=== PATIENT | male | born 1960 | race Caucasian/White ===

== ENCOUNTER 2019-12-21 20:17 | Emergency (ER) | payer BC ==
--- OUTSIDE RECORDS SUMMARY | 2019-12-21 20:20 | XMS REPORT | Continuity of Care Document ---
:1960 Author Organization [employer] Care Team Providers Name Role Phone [employer] Unavailable Un available Problems Problem Status Onset Classification Date Comments Sourc e Date Reported Right upper 06/22/19 01/06/2019 [facility] quadrant 19 [facility] abdominal swelling, mass and lump R03.0 - ELEVATED Active 06/26/19 [facility] BLOOD-PRESSURE 18 Tamiko and READIN R Abdominal mass Resolved Problem 08/18/2019 M edical (finding) Group, [facility] [place] Finding of Active Problem 08/18/2019 Medic al increased blood Grou p, pressure [facility] (finding) [place] Ex-smoker Active Problem 08/18/2019 Medica l (finding) Group, [facility] [place] Hearing aid worn Active Problem 08/18/2019 Medical (finding) Group, [facility] [place] Heartburn Active Problem 08/18/2019 Medica l (finding) Group, [facility] [place] Simple obesity Active Problem 08/18/2019 [facility] edical (disorder) Group, [facility] [place] Dyspnea (finding) Resolved Problem 08/18/2019 [facility], [facility] [place] Personal history 01/06/2019 [facility] of nicotine [place] dependence Diverticulosis of 01/06/2019 [facility] large intestine [place] without perforation or abscess without bleeding Enlarged prostate 01/06/2019 [facility] without lower [place] urinary tract symptoms Medications Medication Details Route Status Patient Ordering Order Source Instructions Provider Date Testosterone 0 Refill(s) Active [facility] 019 [facility] Amlodipine PO, Daily, 0 Active MH Refill(s) 019 Medical Group metoprolol PO, Daily, 0 Active MH extended Refill(s) 019 Medical release Group ezetimibe 10 MG 1 tab, PO, Active MH / Simvastatin Daily, # 90 019 Medica l 20 MG Oral tab, 1 Group Tablet [Vytorin Refill(s) 03/24] pantoprazole 40 = 1 tab, PO, Active MH mg oral enteric Daily, # 90 019 Medi charli coated tablet tab, Group Pharm[place] [id number] benzonatate 200 200 mg = 1 No Longer MH MG Oral Capsule cap, PO, Active 019 Medical [Tessalon] TID, X 10 Group day, # 30 cap, 0 Refill(s), Pharmacy: [facility] [place] azithromycin See No Longer MH 250 mg oral Instructions Active 019 Medical tablet , Take 2 Group tablets by mouth the first day then 1 tablet by mouth daily on days 2-5., X 5 day, # 6 tab, 0 Refill(s), Pharmacy: [facility] [place] predniSONE 20 20 mg = 1 No Longer MH mg oral tablet tab, PO, Active 019 Medical Daily, X 5 Group day, # 5 tab, 0 Refill(s), Pharmacy: [facility] [place] pantoprazole 40 40 mg = 1 No Longer MH mg oral enteric tab, PO, Active 019 Medical coated tablet Daily, # 90 Group tab, 1 Refill(s), Pharmacy: [place] [id number] 0.5 ML 0.5 mL, IM, Active MH Varicella ONCE, repeat 019 Medical zoster virus dose in 2 to Group glycoprotein E, 6 months, # recombinant 0.1 1 mL, 1 MG/ML Injection Refill(s), [Shingrix] Pharmacy: [place] [id number] tadalafil 10 MG 10 mg = 1 Active MH Oral Tablet tab, PO, 018 Medical [Cialis] Daily, PRN Group for erectile dysfunction, # 10 tab, 1 Refill(s) Allergies, Adverse Reactions, Alerts Substance Category Reaction Severity Reaction Status Date Comments S ource type Reported HYDROcodone Assertion Drug Active MH allergy Medical Group Immunizations No Data Provided for This Section Results No Data Provided for This Section Pathology Reports No Data Provided for This Section Diagnostic Reports Report Value Date Source CT Low Dose Lung Radiation Dose CTDIVOL = 0 (mGy): DLP = 154.79 (mGy-cm) 06/14/2019 [facility] Screening PROCEDURE INFORMATION: Exam: CT Lung cancer screening Exam date and time: 06/14/2019 9:50 AM Age: 59 years old 59 years year old. Clinical indication: Personal history of nicotine dependence; Additional info: /z87.891 personal history of nicotine dependence Additional history: Asymptomatic patient meeting high-risk criteria for lung screening. Patient is not currently a smoker. Th ere is a 40 pack-year history of smoking. 1 year follow-up. TECHNIQUE: Imaging protocol: CT volumet tamara low-dose chest CT without contrast. Lung cancer screening. 3D rendering: MIP and/or 3D reconstructed images were created by the technologist. CTDI volume: CTDI 4.08 mGy Total DLP: DLP 154.79 mGy-cm COMPARISON: CT Low Dose Lung Screening 06/18/2018 9:04 AM FINDINGS: Lungs: Small focal area of ground-glass pulmonar y parenchyma opacity is noted at the ventral medial right upper lobe abutting the anterior junction line associated with a larger distribution of peribro nchial thickening and peribronchial ground-glass haziness; a s imilar smaller distribution pattern of peribronchial opacity is noted at the dorsal lat eral left lower lobe. Mild centrilobular emphysema at the upper lung rosas bilaterally. Calcified granulomas are noted at the superior segment of the left lower lobe, lateral and dorsal right upper lobe, ventral lateral rig ht middle lobe, dorso lateral basal right lower lobe and medial basal left low er lobe. Lung nodules: No noncalcified pulmonary nodule. Pleural space: Unremarkable. No pneumothorax. No pleural effusion. Heart: Unremarkable. No cardiomegaly. No pericar dial effusion. Coronary arteries: Moderate coronary artery calc ifications. Mediastinum: Non threshold mediastinal lymph nod es.Air is present within the esophageal lumen with may represent esophageal d ysmotility and/or reflux. Aorta: Ectasia of the mid as cending thoracic aorta measuring 4.2 x 4.3 cm. Mild vascular calcification Lymph nodes: Unremarkable. No enlarged lymph nod es. Bones/joints: Unremarkable. No acute abnormality . Soft tissues: Unremarkable. Other findings: Fatty infilt ration of the pancreatic head and uncinate process. IMPRESSION: 1.Category 2: Negative, will gn findings with no evidence of malignancy. Suggest next LDCT in 12 months if age less than 77 years . 2. Interval demonstration of bronchopneumonia pa ttern at the ventral medial right upper lobe and dorsal lateral left lower l obe. 3. Moderate coronary artery calcifications. 4. Ectasia of the mid ascending thoracic aorta incrementally increased in size from the previous exam. 5. Multiple calcified granulomas are noted at th e lungs bilaterally. 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 There is a 48 pack-year history of smoking. COMPARISON: None. TECHNIQUE: Noncontrast, volumetric low-dose CT C hest. kVp = 120 mA = 120; CT Dlvol = 4.08 mGy DLP [address] imaging performed at this location utilizes radiation dose optimization techniques which include one or more of the following: -Automated exposure control -Adjustment of the mA and/or kV according to pat ient size -Use of iterative reconstruction technique FINDINGS: LUNG NODULES: Multiple calcified granulomas in b oth lungs. Other Lung Disease: Bleb or air cyst left upper lobe. Aorta: Minimal atherosclerosis. The ascending ao rta measures 4 cm AP. Heart: Multivessel coronary artery calcification s. Lymph nodes: No bulky lymph nodes. Base of Neck: No significant finding. Upper Abdomen: Possible cyst in the liver. OTHER INCIDENTALS: Generalized osteopenia. LUNG-RADS CATEGORY AND IMPRESSION: 1. Lung RADS Category 2. Continue annual screeni ng with low-dose CT chest. 2. Coronary artery calcifications. 3. Ectatic ascending aorta. 4. Old healed granulomatous disease. Category C -- History of lung cancer: No Category S -- Other findings requiring urgent ev aluation: None Thank you for choosing the [facility] Lung Screening Program. [id number] Pelvis wo IV contrast CT PELVIS WITHOUT CONTRAST W ITH SAGITTAL AND CORONAL REFORMATTED IMAGES 06/18/2018 [facility] CT HISTORY: Left lower quadrant abdominal mass and pain; evaluate for hernia TECHNIQUE: IV CONTRAST: No. GI CONTRAST: Yes. CT imaging performed at this location utilizes radiation dose optimization techniques which include one or more of the following: -Automated exposure control -Adjustment of the mA and/or kV according to pat ient size -Use of iterative reconstruction technique CT Radiation Dose DLP 629.06 mGy-cm COMPARISON: None available. FINDINGS: There is no inguinal, femora l, or pelvic wall hernia. No soft tissue mass or fluid collection is seen within the pelvis. No inguinal lymphadenopathy. Normal pelvic musculature. Visualized portion of the co jose demonstrates mild diverticulosis without evidence of acute diverticulitis. The appendix is normal. The visualized small bowel is normal. Normal urinary bladder. Mild pros tatomegaly with coarse prost ate calcifications. No free fluid or lymphadenopathy in the pelvis. No aggressive osseous lesion or acute osseous abnormality. Mild degenerative spurring of the bilateral hip joints. IMPRESSION: 1. No mass, hernia, or acute abnormality. 2. Mild colonic diverticulos is, mild prostatomegaly, mild degenerative spurring of the hips. SL: [id number] Chest 2 views DX Study: Chest 2 views DX 06/27/2017 EVANGELISTA Gee Clinical Indication: - wheezing at night Comparison: None FINDINGS: The cardiac silhou ette is normal in size. The lungs are clear and without consolidation or congestion. Scattered calcified granulomas throughout the bilateral lungs are present. No pleural eff usion or pneumothorax is seen. The osseous stru ctures are unremarkable. IMPRESSION: No acute cardiopulmonary disease. SL: [id number] Consultation Notes No Data Provided for This Section Discharge Summaries No Data Provided for This Section History and Physicals No Data Provided for This Section Vital Signs Vital Sign Value Date Comments Source BMI Calculated 31.78 01/04/2019 Medical Gr oup Weight 100.455 01/04/2019 Medical Grou p Height 177.8 cm 01/04/2019 Medical Gr[facility] p Temperature Oral (F) 97.9 F 01/04/2019 [facility]i [facility] Heart Rate 56 01/04/2019 Medical Grou p Respitory Rate 18 01/04/2019 Medical Gr oup Systolic (mm Hg) 145 01/04/2019 Medical Group Diastolic (mm Hg) 80 01/04/2019 Medical Group Heart Rate 62 07/11/2018 Medical Grou p Temperature Oral (F) 98.1 F 07/11/2018 [facility]i [facility] Group Systolic (mm Hg) 125 07/11/2018 Medical Group Diastolic (mm Hg) 84 07/11/2018 Medical Group Height 177.8 cm 07/11/2018 Medical Grou p Weight 104.545 07/11/2018 Medical Grou p BMI Calculated 33.07 07/11/2018 Medical Gr oup BMI Calculated 33.26 06/11/2018 Medical Gr oup Weight 105.142 06/11/2018 [facility] Gr[facility] p Height 177.8 cm 06/11/2018 [facility] Medical Grou p Temperature Oral (F) 97.4 F 06/11/2018 [facility]i [facility]li Group Heart Rate 60 06/11/2018 [facility] p Systolic (mm Hg) 147 06/11/2018 [facility] Diastolic (mm Hg) 96 06/11/2018 Medical Group Heart Rate 70 06/22/2017 [facility] Medical Grou p Temperature Oral (F) 97.9 F 06/22/2017 MH Medi charli Group Systolic (mm Hg) 141 06/22/2017 [facility] Diastolic (mm Hg) 85 06/22/2017 [facility] Height 177.8 cm 06/22/2017 [facility] p BMI Calculated 32.41 06/22/2017 Medical Gr oup Weight 102.443 06/22/2017 [facility] Medical Grou p Encounters Location Location Encounter Encounter Reason Attending ADM PR Stat us Source Details Type Number For Provider Date Date Visit Outpatient [id number] SILVESTRE PIEDRA 06/22 Act [facility] Outpatient [id number] Silvestre Piedra 06/22 06/23 Primary [facility] Outpatient [id number] SILVESTRE PIEDRA 06/11 Act [facility] Outpatient [id number] Silvestre Piedra 06/11 06/12 Primary Medical Care [facility] Outpt Diag [id number] Silvestre Piedra 06/18 06/19 [facility] Outpatient Services [facility] Phone [id number] 06/20 06/22 Primary Message [facility] [id number] SILVESTRE PIEDRA 06/27 Act [facility] Ambulatory [id number] Silvestre Piedra 06/27 06/27 Primary Pre-Reg [facility] Out[facility] [id number] AKUVI ELHOR 07/11 [facility] Outpatient [id number] Akuvi Elhor 07/11 07/12 MH Primary 3 Medical Care Group [facility] Phone [phone] 07/13 07/15 Primary Message Medical Care [facility] Outpatient [id number] Silvestre Piedra 01/04 [facility] Outpatient [id number] Silvestre Piedra 01/04 01/05 [facility] [id number] 01/07 01/08 Primary Visit Medical Care [facility] Between [id number] 05/20 05/21 MH Primary Visit Medical Care Group [facility] Outpt Diag [id number] Ariste[place] 06/14 06/15 [facility] Outpatient Services [facility] Between [id number] 08/06 08/07 Medicine Visit [facility] Between [id number] 08/14 08/15 Medicine Visit [facility] Procedures Procedure Code Date Perfomer Comments Source Hernia [id number] Medical Group, [facility] [place] Skin<sup>1</sup> [id number] REMOVAL FOR [facility] CANCER Group, [facility] Tonsillectomy [id number] [facility] Assessment and Plan No Data Provided for This Section Plan of Care No Data Provided for This Section Social History Social History Date Source Social History TypeResponse 06/22/2017 [facility] Alcohol Current, Type Beer.1 Smoking Status Former smoker; Ready to change: No; Conc erns about tobacco use in household: No; Exposure to Tobacco Smoke None; Cigarette Smoking Last 365 Days No; Reg Smoking Cessation Counseling No entered on: 01/04/19 1one or two a month Social History TypeResponse 06/22/2017 [facility] [place] Alcohol Current, Type Beer.1 Smoking Status Former smoker; Ready to change: No; Conc erns about tobacco use in household: No; Exposure to Tobacco Smoke None; Cigarette Smoking Last 365 Days No; Reg Smoking Cessation Counseling No entered on: 01/04/19 1one or two a month Family History No Data Provided for This Section Advance Directives No Data Provided for This Section Functional Status No Data Provided for This Section
--- NOTE | 2019-12-21 20:39 | ER ---
Nurse's Notes [facility] Name: Mynor Jenkins Age: 59 yrs Sex: Male : 1960 Arrival Date: 12/21/2019 Time: 20:21 Bed Waiting Private MD: Diagnosis: Presentation: 12/20 20:34 Chief complaint: Patient states: BP 203/102 today. Slight back pain. Denies PATINO/CP. ll1 Coronavirus screen: Patient denies a cough. Patient denies shortness of breath or difficulty breathing. Patient denies measured and/or subjective temperature greater than 100.4F prior to today's visit. Patient denies travel on a cruise ship or to a country [facility] currently lists as an affected area. Patient denies contact with known and/or suspected case of COVID-19. Proceed with normal triage. Ebola Screen: Patient denies travel to an Ebola-affected area in the 21 days before illness onset. Initial Sepsis Screen: Does the patient meet any 2 criteria? HR > 90 bpm. No. Patient's initial sepsis screen is negative. Risk Assessment: Do you want to hurt yourself or someone else? Patient reports no desire to harm self or others. Onset of symptoms was December 21, 2019. 20:34 Method Of Arrival: Ambulatory ll1 20:34 Acuity: JAYJAY 3 ll1 Historical: - Allergies: 20:36 Hydrocodone-Acetaminophen; ll1 - PMHx: 20:36 Hypertension; High Cholesterol; Emphysema; ll1 - PSHx: 20:36 Hernia repair; Tonsillectomy; ll1 - Immunization history:: Flu vaccine is up to date. - Social history:: Smoking status: Patient/guardian denies using tobacco, the patient reports quitting approximately 21 years ago, Patient uses alcohol, only on a social basis. Patient/guardian denies using street drugs, IV drugs. Vital Signs: 20:34 BP 144 / 88; Pulse 93; Resp 18; Temp 99.0; Pulse Ox 99% ; Pain 0/10; ll1 20:48 BP 142 / 86; ll1 ED Course: 20:21 Patient arrived in ED. cf2 20:35 Triage completed. ll1 20:37 Arm band placed on Patient notified of wait time. ll1 20:39 States since his BP is normal now, he is going to go home. Will return if needed. . ll1 Administered Medications: No medications were administered Outcome: 20:39 Patient left the ED. ll1 20:49 Patient left the ED. 1 Signatures: Carol Spicer2 Kitty Johnson, RN RN ll1
[2019-12-21 22:33] VITALS: TEMP 99; O2SAT 99
[2019-12-21 22:36] VITALS: BP 142/86
== END 2019-12-21 20:49 | disposition left against medical advice (07) ==
LOC: ER 20:17
DX: Z53.21 Procedure and treatment not carried out due to patient leaving prior to being seen by health care provider (principal)
CPT/HCPCS: 99281

== ENCOUNTER 2020-01-28 08:30 | Emergency (ER) | payer BC ==
--- OUTSIDE RECORDS SUMMARY | 2020-01-28 09:12 | XMS REPORT | Clinical Summary ---
:1960 Author Organization [employer] Address [address] [place] [id number] Care Team Providers Name Role Phone Destinee Avery MD Primary Care Provider Allergies Not on File Medications Not on file Active Problems Not on file Encounters Date Type Specialty Care Team Description 01/22/2020 Travel 01/20/2020 Telemedicine Cardiology Mack Shen Other hyperl ipidemia (Primary Dx); MD Rickie Abnormal labora tory test; Essential hyper tension; Abnormal glucos e; Diabetes mellit us screening; Thoracic aortic aneurysm without rupture (HCC) 01/16/2020 Travel after 01/27/2019 Social History Tobacco Use Types Packs/Day Years Used Date Never Assessed Sex Assigned at Date Recorded Not on file Job Start Date Occupation Industry Not on file Not on file Not on file Travel History Travel Start Travel End No recent travel history available. COVID-19 Exposure Response Date Recorded In the last month, have you been in contact with No / Unsure 01/22/2020 2:57 PM CDT someone who was confirmed or suspected to have Coronavirus / COVID-19? Last Filed Vital Signs Not on file Plan of Treatment Date Type Specialty Care Team Description 02/03/2020 Appointment Procedural Cardiology Mack Shen MD [address] [place], [place] [address] [phone] 02/03/2020 Appointment Procedural Cardiology Mack Shen MD [address] [place], [place] [address] [phone] Health Maintenance Due Date Last Done Comments COLONOSCOPY SCREENING 2008 SHINGLES VACCINES (#1) 2008 INFLUENZA VACCINE 03/05/2020 Results Not on fileafter 01/27/2019 ([place]) [place] [address] Advance Directives For more information, please contact: [phone] Type Date 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
--- OUTSIDE RECORDS SUMMARY | 2020-01-28 09:13 | XMS REPORT | Continuity of Care Document ---
:1960 Author Organization [facility] t Address [address] [place] [address] Care Team Providers Name Role Phone Destinee Avery MD Primary Care Physician Rickie Shen MD Attending Clinician Rich Lama Attending Clinician Destinee Avery Attending Clinician Jase Wang Attending Clinician Payers Payer Name Policy Type Policy Number Effective Date Expiration Date S saurabh [id number] xxxxxxxxxxxx 2011 [place] CHOICE 00:00:00 Sabianist PPO/FEDERAL EMPL PPOxxxxxxxxxxx [id number] sentPPO Problems Condition Condition Condition Status Onset Resolution Last Treating Co mments Source Name Details Category Date Date Treatment Clinician Date R03.0 - Diagnosis Active 2017-06-27 Me moria ELEVATED -22 15:38:00 l BLOOD-PRES R03.0 - 00:01: [facility] SURE ELEVATED 00 READIN R BLOOD-PRES SURE READIN R Active 06/26/2017 MH [facility] [place] Personal Problem 2019-01-06 Mem oria history of 11:15:31 l nicotine Personal Herm ashlie dependence history of nicotine dependence 01/06/2019 MH [facility] [place] Diverticul Problem 2019-01-06 M emoria osis of 11:15:31 l large [place] intestine Diverticul without osis of perforatio large n or intestine abscess without without perforatio bleeding n or abscess without bleeding 01/06/2019 [facility] [place] Enlarged Problem 2019-01-06 Mem oria prostate 11:15:31 l without Enlarged Iesha nn lower prostate urinary without tract lower symptoms urinary tract symptoms 01/06/2019 EVANGELISTA Gee Abdominal Problem Resolve 2019-08-18 M emoria mass d 21:23:50 l (finding) Jose E Abdominal mass (finding) Resolved Problem 08/18/2019 Medical [facility], EVANGELISTA [place] Dyspnea Problem Resolve 2019-08-18 Mem oria (finding) d 21:23:50 l Dyspnea [place] (finding) Resolved Problem 08/18/2019 [facility] [place] Finding of Problem Active 2019-08-18 M emoria increased 21:23:50 l blood Finding [place] pressure of (finding) increased blood pressure (finding) Active Problem 08/18/2019 Medical [facility], EVANGELISTA [place] Ex-smoker Problem Active 2019-08-18 Me moria (finding) 21:23:50 l Jose E Ex-smoker (finding) Active Problem 08/18/2019 [facility] [place] Hearing Problem Active 2019-08-18 Lai shira aid worn 21:23:50 l (finding) Hearing Herm ashlie aid worn (finding) Active Problem 08/18/2019 [facility] [place] Heartburn Problem Active 2019-08-18 Me moria (finding) 21:23:50 l Jose E Heartburn (finding) Active Problem 08/18/2019 Medical [facility], EVANGELISTA Gee Simple Problem Active 2019-08-18 Memor ia obesity 21:23:50 l (disorder) Simple Herm ashlie obesity (disorder) Active Problem 08/18/2019 Medical [facility] EVANGELISTA Gee Right Problem 2019-0 2019-01-06 2019-01-06 M emoria upper 1-18 11:15:31 11:15:31 l quadrant Right 05:59: [place] abdominal upper 46 swelling, quadrant mass and abdominal lump swelling, mass and lump 06/22/2018 01/06/2019 EVANGELISTA [place] Allergies, Adverse Reactions, Alerts Allergy Allergy Status Severity Reaction(s) Onset Inactive Treating Comm ents Source Name Type Date Date Clinician HYDROcod HYDROcod Active Memori a one one l Jose E Social History Social Habit Start Date Stop Date Quantity Comments Source Sex Assigned At [facility] ethodist Exposure to Not sure [facility] SARS-CoV-2 (event) Social History 2017-06-22 2017-06-22 [facility] ermann 19:34:28 19:34:28 Medications Ordered Filled Start Stop Current Ordering Indication Dosage Frequency Signature Comments Components Source Medication Medication Date Date Medication? Clinician (SIG) Name Name Skyla Yes 0 Memori a e - Refill(s) l 19:52: [place] 00 Amlodipine Yes PO, Daily, M emoria 01-04 0 l 19:52: Refill(s) [place] 00 metoprolol Yes PO, Daily, M emoria extended 01-04 0 l release 19:52: Refill(s) Iesha nn 00 ezetimibe Yes 1 tab, PO, Me moria 10 MG / 8- Daily, # l Simvastatin 19:52: 90 tab, 1 H ermann 20 MG Oral 00 Refill(s) Tablet [Vytorin 10/20] pantoprazol Yes = 1 tab, Me moria e 40 mg 6-26 PO, Daily, l oral 12:34: # 90 tab, [place] enteric 47 Pharmacy: coated [facility] [place] [id number] benzonatate No 200 mg = 1 Memoria 200 MG Oral 2-06 cap, PO, l Capsule 16:07: TID, X 10 Iesha nn [Tessalon] 00 day, # 30 cap, 0 Refill(s), Pharmacy: [place] [address] azithromyci No See Memori a n 250 mg 2-06 Instructio l oral tablet 16:05: ns, Take 2 [place] 00 tablets by mouth the first day then 1 tablet by mouth daily on days 2-5., X 5 day, # 6 tab, 0 Refill(s), Pharmacy: [place] [address] predniSONE No 20 mg = 1 Me moria 20 mg oral 2-06 tab, PO, l tablet 16:04: Daily, X 5 Iesha nn 00 day, # 5 tab, 0 Refill(s), Pharmacy: [place] [address] pantoprazol No 40 mg = 1 M emoria e 40 mg 1-07 tab, PO, l oral 20:56: Daily, # [place] enteric 00 90 tab, 1 coated Refill(s), tablet [facility] 149 0.5 ML 2019-0 Yes 0.5 mL, Memoria Varicella 1-07 IM, ONCE, l zoster 20:56: repeat Jose E virus 00 dose in 2 glycoprotei to 6 n E, months, # recombinant 1 mL, 1 0.1 MG/ML Refill(s), Injection Pharm[facility]: [[facility] tadalafil 2018-0 Yes 10 mg = 1 Mem oria 10 MG Oral 1-18 tab, PO, l Tablet 19:35: Daily, PRN Iesha nn [Cialis] 00 for erectile dysfunctio n, # 10 tab, 1 Refill(s) Vital Signs Vital Name Observation Time Observation Value Comments Source BMI Calculated 2019-01-04 19:28:00 Memori al Jose E Weight 2019-01-04 19:28:00 Memorial Jose E Height 2019-01-04 19:28:00 177.8 cm [facility] Jose E Temperature Oral (F) 2019-01-04 19:28:00 97.9 F [facility] Jose E Heart Rate 2019-01-04 19:28:00 [facility] Jose E Respitory Rate 2019-01-04 19:28:00 Memori al Jose E Systolic (mm Hg) 2019-01-04 19:28:00 Lai rial [place] Diastolic (mm Hg) 2019-01-04 19:28:00 Mem orial Jose E Heart Rate 2018-07-11 15:45:00 Memorial Jose E Temperature Oral (F) 2018-07-11 15:45:00 98.1 F [facility] [place] Systolic (mm Hg) 2018-07-11 15:45:00 Lai rial Jose E Diastolic (mm Hg) 2018-07-11 15:45:00 Mem orial Jose E Height 2018-07-11 15:45:00 177.8 cm Memorial Jose E Weight 2018-07-11 15:45:00 Memorial Jose E BMI Calculated 2018-07-11 15:45:00 Memori al Jose E BMI Calculated 2018-06-11 20:21:00 Memori al [place] Weight 2018-06-11 20:21:00 Memorial Jose E Height 2018-06-11 20:21:00 177.8 cm [facility] Jose E Temperature Oral (F) 2018-06-11 20:21:00 97.4 F [facility] [place] Heart Rate 2018-06-11 20:21:00 Memorial Jose E Systolic (mm Hg) 2018-06-11 20:21:00 Lai rial [place] Diastolic (mm Hg) 2018-06-11 20:21:00 Mem orial [place] Heart Rate 2017-06-22 19:27:00 Memorial Jose E Temperature Oral (F) 2017-06-22 19:27:00 97.9 F [facility] [place] Systolic (mm Hg) 2017-06-22 19:27:00 Lai rial Jose E Diastolic (mm Hg) 2017-06-22 19:27:00 Mem orial Jose E Height 2017-06-22 19:27:00 177.8 cm [facility] Jose E BMI Calculated 2017-06-22 19:27:00 Memori al [place] Weight 2017-06-22 19:27:00 Memorial Jose E Procedures Procedure Date / Time Performed Performing Clinician Sourc e Hernia Memorial Jose E Skin<sup>1</sup> Memorial Lit n Tonsillectomy [facility] [place] Plan of Care Planned Activity Planned Date Details Comments Source Future Scheduled 2020-03-05 INFLUENZA VACCINE [place] [facility] 00:00:00 [code = INFLUENZA VACCINE] Future Scheduled 2008 COLONOSCOPY SCREENING [place] [facility] Test 00:00:00 [code = COLONOSCOPY SCREENING] Future Scheduled 2008 SHINGLES VACCINES [place] [facility] 00:00:00 (#1) [code = SHINGLES VACCINES (#1)] Encounters Start End Encounter Admission Attending Care Care Encounter Source Date/Time Date/Time Type Type Clinicians Facility Department ID 2020-01-20 2020-01-20 [id number] [place] 00:00:00 00:00:[address] 2019-08-15 2019-08-16 Outpatient [facility] [id number] 10:34:57 10:34:57 08 2019-08-07 2019-08-08 Outpatient [facility] [id number] 07:54:05 07:54:05 07 2019-06-14 2019-06-14 Outpatient Rebecait MHOIP MHOIP [id number] 09:02:00 23:59:00 Aristeo 2019-05-20 2019-05-21 Outpatient [facility] [id number] 13:17:22 13:17:22 06 2019-01-07 2019-01-08 Outpatient [facility] [id number] 10:40:28 10:40:28 05 2019-01-04 2019-01-04 Outpatient Avery, MHMG MH[facility] [id number] 14:45:00 23:59:59 Silvestre Antelope 2018-07-13 2018-07-14 Outpatient [facility] [id number] 11:55:00 23:59:59 2018-07-11 2018-07-11 Outpatient Elhor MH[facility] MH[facility] [id number] 10:00:00 23:59:59 Roi Wang [facility] 2018-07-11 2018-07-11 Outpatient Elhor MHMG MHMG [id number] 10:00:00 23:59:59 Vicshahzad [facility] 2018-06-27 2018-06-27 Outpatient Avery, MHMG MHMG [id number] 11:30:00 11:30:00 Silvestre Antelope 2018-06-27 2018-06-27 Outpatient Avery, MHMG MHMG [id number] 11:30:00 11:30:00 Silvestre Antelope 2018-06-20 2018-06-21 Outpatient MHMG MHMG [id number] 15:58:00 23:59:59 2018-06-18 2018-06-18 Outpatient Avery, MHOIP MHOIP [id number] 08:17:00 23:59:00 Silvestre Destinee 2018-06-11 2018-06-11 Outpatient Avery, MHMG MHMG [id number] 14:30:00 23:59:59 Silvestre Destinee 2017-06-22 2017-06-22 Outpatient Avery, MHMG MHMG [id number] 13:45:00 23:59:59 Silvestre Destinee Results This patient has no known results.
--- OUTSIDE RECORDS SUMMARY | 2020-01-28 09:13 | XMS REPORT | Continuity of Care Document ---
:1960 Author Organization [email or web address] Care Team Providers Name Role Phone [email or web address] Unavailable Un available Problems Problem Status Onset Classification Date Comments Sourc e Date Reported Right upper 06/22/19 01/06/2019 [facility] quadrant 19 [place] abdominal swelling, mass and lump R03.0 - ELEVATED Active 06/26/19 [facility] BLOOD-PRESSURE 18 [place] and READIN R Abdominal mass Resolved Problem 08/18/2019 M edical (finding) Group, [facility] [place] Finding of Active Problem 08/18/2019 Medic al increased blood Grou p, pressure OP[facility] (finding) [place] Ex-smoker Active Problem 08/18/2019 Medica l (finding) Group, [facility] [place] Hearing aid worn Active Problem 08/18/2019 Medical (finding) Group, [facility] [place] Heartburn Active Problem 08/18/2019 Medica l (finding) Group, [facility] [place] Simple obesity Active Problem 08/18/2019 [facility] edical (disorder) Group, [facility] [place] Dyspnea (finding) Resolved Problem 08/18/2019 [facility] Medical Group, [facility] [place] Personal history 01/06/2019 OP[facility] of nicotine [place] dependence Diverticulosis of 01/06/2019 [facility] OPID large intestine [place] without perforation or abscess without bleeding Enlarged prostate 01/06/2019 [facility] OP[facility] without lower [place] urinary tract [...] coated tablet tab, Group [place] [address] benzonatate 200 200 mg = 1 No Longer MH MG Oral Capsule cap, PO, Active 019 Medical [Tessalon] TID, X 10 Group day, # 30 cap, 0 Refill(s), [facility] Gillian azithromycin See No Longer MH 250 mg oral Instructions Active 019 Medical tablet , Take 2 Group tablets by mouth the first day then 1 tablet by mouth daily on days 2-5., X 5 day, # 6 tab, 0 Refill(s), [facility] Gillian predniSONE 20 20 mg = 1 No Longer MH mg oral tablet tab, PO, Active 019 Medical Daily, X 5 Group day, # 5 tab, 0 Refill(s), Pharmacy: [facility] Gillian pantoprazole 40 40 mg = 1 No Longer MH mg oral enteric tab, PO, Active 019 Medical coated tablet Daily, # 90 Group tab, 1 Refill(s), [place] [address] 0.5 ML 0.5 mL, IM, Active MH Varicella ONCE, repeat 019 Medical zoster virus dose in 2 to Group glycoprotein E, 6 months, # recombinant 0.1 1 mL, 1 MG/ML Injection Refill(s), [Shingrix] Pharmacy: [place] [address] tadalafil 10 MG 10 mg = 1 [...] (mGy): DLP = 154.79 (mGy-cm) 06/14/2019 [facility] [place] Screening PROCEDURE INFORMATION: Exam: CT Lung cancer [...] Per Beach MD On 06/14/2019 13:58:02; [id number] Low Dose Lung CT Low Dose Lung Screening 06/18/2018 8:24 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 [id number] Pelvis wo IV contrast CT PELVIS WITHOUT CONTRAST W ITH SAGITTAL AND CORONAL REFORMATTED IMAGES 06/18/[address] [facility] [address] HISTORY: Left lower quadrant abdominal mass [...] mild degenerative spurring of the hips. SL: [id number] Chest 2 views DX Study: Chest 2 [...] unremarkable. IMPRESSION: No acute cardiopulmonary disease. SL: [id number] Consultation Notes No Data Provided for This [...] Location Location Encounter Encounter Reason Attending ADM AL Stat us Source Details Type Number For Provider Date Date Visit Outpatient [id number] SILVESTRE PIEDRA 06/22 Act radha [facility] Outpatient [id number] Silvestre Piedra 06/22 06/23 Primary Medical Care Group [facility] Outpatient [id number] SILVESTRE PIEDRA 06/11 Act radha [facility] Outpatient [id number] Silvestre Piedra 06/11 06/12 Primary Medical Care Group [facility] Outpt Diag [id number] Silvestre Piedra 06/18 06/[address] [facility] Phone [id number] 06/20 06/22 Primary Message Medical Care Group [place] Outpatient [id number] SILVESTRE PIEDRA 06/27 Act radha [facility] Ambulatory [id number] Silvestre Piedra 06/27 06/27 Primary Pre-Reg Medical Care Group [place] Outpatient [id number] AKUVI ELHOR 07/11 Act radha [facility] Outpatient [id number] Akuvi Elhor 07/11 07/12 MH Primary 3 Medical Care Group [facility] Phone [id number] 07/13 07/15 Primary Message Medical Care [facility] Outpatient [id number] Silvestre Piedra 01/04 Act radha [facility] Outpatient [id number] Silvestre Piedra 01/04 01/05 [facility] [id number] 01/07 01/08 Primary Visit Medical Care [facility] Between [id number] 05/20 05/21 MH Primary Visit Medical Care Group [facility] Outpt Diag [id number] Aristeo 06/14 06/15 OP[facility] Outpatient Services 2 [facility] [place] [facility] [place] [facility] Between [id number] 08/06 08/07 Medicine Visit [facility] Between [id number] 08/14 08/15 Medicine Visit [facility] Procedures Procedure Code Date Perfomer Comments Source Hernia [id number] Medical Group, [facility] [place] Skin<sup>1</sup> [id number] REMOVAL FOR [facility] CANCER Group, [facility] [place] Tonsillectomy [id number] [facility] [place] Assessment and Plan No Data Provided for [...]
[2020-01-28 09:22] LABS: Absolute Lymphocytes (CBC) 1.2 K/uL (0.7-4.9); Basophils % 0.6 % (0-1.3); Hematocrit 43.5 % (39.6-49.0); Lymphocytes % 23.7 % (15.3-44.8); MPV 7.3 fL (7.6-11.3); Protime INR 1.05; RBC Red Blood Cell Count 5.33 M/uL (4.33-5.43)
--- NOTE | 2020-01-28 09:34 | RAD REPORT ---
EXAM DESCRIPTION: Tod Single View01/28/2020 9:15 am CLINICAL HISTORY: Palpitations COMPARISON: 2012 FINDINGS: Calcified granulomas within the lungs bilaterally The lungs appear clear of acute infiltrate. The heart is normal size IMPRESSION: No acute abnormalities displayed
[2020-01-28 09:43] LABS: ALT/SGPT 47 U/L (12-78); AST/SGOT 23 U/L (15-37); Alkaline Phosphatase 43 U/L (45-117); BUN Blood Urea Nitrogen 18 mg/dL (7-18); Bicarbonate 25 mmol/L (21-32); Bilirubin Direct 0.2 mg/dL (0-0.2); Bilirubin Total 0.7 mg/dL (0.2-1.0); Glucose Level 106 mg/dL (74-106); Magnesium 2.1 mg/dL (1.8-2.4); NT PRO-BNP 69 pg/mL (<125); Potassium 3.8 mmol/L (3.5-5.1); Protein, Total 7.3 g/dL (6.4-8.2); Sodium Level 140 mmol/L (136-145); Troponin (Emerg Dept Use Only) < 0.02 ng/mL (0.0-0.045)
[2020-01-28] MEDS ORDERED: ASPIRIN 81 MG CHEWABLE TABLET ONE ×2 (10:02)
--- NOTE | 2020-01-28 10:19 | ER ---
Nurse's Notes [facility] Name: Mynor Jenkins Age: 59 yrs Sex: Male : 1960 Arrival Date: 01/28/2020 Time: 08:35 Bed 20 Private MD: Diagnosis: Palpitations;Essential (primary) hypertension;Weakness;Ventricular premature depolarization Presentation: 01/27 08:40 Chief complaint: Patient states: episode episodes of "fluttering sensation" in chest x ss 3-4 weeks. Pt reports he was sitting at a red light this morning and felt that sensation and it feels like at times he is about to pass out. Coronavirus screen: Client denies travel out of the [place] in the last 14 days. At this time, the client does not indicate any symptoms associated with coronavirus-19. Ebola Screen: Patient denies exposure to infectious person. Patient denies travel to an Ebola-affected area in the 21 days before illness onset. Initial Sepsis Screen: Does the patient meet any 2 criteria? No. Patient's initial sepsis screen is negative. Does the patient have a suspected source of infection? No. Patient's initial sepsis screen is negative. Risk Assessment: Do you want to hurt yourself or someone else? Patient reports no desire to harm self or others. Onset of symptoms was December 2019. 08:40 Method Of Arrival: Ambulatory ss 08:40 Acuity: JAYJAY 3 ss Historical: - Allergies: 08:46 Hydrocodone-Acetaminophen; ss - PMHx: 08:46 Emphysema; High Cholesterol; Hypertension; ss - PSHx: 08:46 Hernia repair; Tonsillectomy; ss - Immunization history:: Adult Immunizations up to date. - Social history:: Smoking status: Patient denies any tobacco usage or history of. - Family history:: not pertinent. Screenin:00 Abuse screen: Denies threats or abuse. Denies injuries from another. Nutritional sv screening: No deficits noted. Tuberculosis screening: No symptoms or risk factors identified. Fall Risk None identified. Assessment: 09:00 General: Appears in no apparent distress. comfortable, well groomed, well developed, sv Behavior is calm, cooperative, appropriate for age. Pain: Denies pain. Neuro: Level of Consciousness is awake, alert, obeys commands, Oriented to person, place, time, situation, Moves all extremities. Full function Speech is normal. Cardiovascular: Reports intermittent heart palpitations x 4 weeks. 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 Patient's skin is warm and dry. Respiratory: Airway is patent Respiratory effort is even, unlabored, Respiratory pattern is regular, symmetrical. Derm: Skin is pink, warm \\T\\ dry. Musculoskeletal: Range of motion: intact in all extremities. 09:54 Reassessment: Echo at the bedside. sv 10:50 Reassessment: Patient appears in no apparent distress at this time. No changes from sv previously documented assessment. Patient and/or family updated on plan of care and expected duration. Pain level reassessed. Patient is alert, oriented x 3, equal unlabored respirations, skin warm/dry/pink. 11:02 Reassessment: Pt waiting for Echo CD to take to his wood flour miller. sv Vital Signs: 08:40 BP 139 / 91; Pulse 63; Resp 16; Temp 97.8(O); Pulse Ox 100% on R/A; Weight 102.97 kg; ss Height 5 ft. 10 in. (177.80 cm); Pain 0/10; 09:14 BP 141 / 87; Pulse 56 MON; Resp 17; Pulse Ox 96% on R/A; sv 10:14 BP 127 / 83; Pulse 65; Resp 16; Pulse Ox 99% ; sv 08:40 Body Mass Index 32.57 (102.97 kg, 177.80 cm) ss 09:14 Sinus bradycardia sv ED Course: 08:35 Patient arrived in ED. mr 08:45 Triage completed. ss 08:46 Arm band placed on right wrist. ss 08:47 Hosea Jones MD is Attending Physician. micah 08:55 Marzena De La Cruz, NEPTALI is Primary Nurse. sv 08:57 Patient has correct armband on for positive identification. Placed in gown. Bed in low sv position. Call light in reach. Report received from Mellissa GUNDERSON. library monitor on. Pulse ox on. NIBP on. Door closed. Head of bed elevated. 09:00 Inserted saline lock: 20 gauge in left antecubital area, using aseptic technique. Blood sv collected. Flushed left antecubital with 5 ml normal saline. 09:14 XRAY Chest (1 view) Sent. sv 09:15 XRAY Chest (1 view) In Process Unspecified. EDMS 09:15 Awaiting ED provider evaluation. sv 09:21 ED physician to see patient. sv 10:26 Echocardiogram with doppler done by process development technician. tc 10:50 IV discontinued, intact, bleeding controlled, No redness/swelling at site. Pressure sv dressing applied. 11:03 No provider procedures requiring assistance completed. sv Administered Medications: 09:54 Drug: NS 0.9% 1000 ml Route: IV; Rate: 125 ml/hr; Site: left antecubital; sv 10:50 Follow up: Response: No adverse reaction; IV Status: Order to discontinue infusion; IV sv Intake: 125ml 09:54 CANCELLED (Physician Discretion): Aspirin 162 mg PO once sv 09:54 Drug: Aspirin Chewable Tablet 324 mg Route: PO; sv 10:50 Follow up: Response: No adverse reaction sv Intake: 10:50 IV: 125ml; Total: 125ml. sv Outcome: 10:19 Discharge ordered by . micah 10:50 Discharged to home ambulatory. sv 10:50 Condition: stable 10:50 Discharge instructions given to patient, Instructed on discharge instructions, follow up and referral plans. medication usage, Demonstrated understanding of instructions, follow-up care, medications, Prescriptions given X 2. 11:21 Patient left the ED. sv Signatures: Dispatcher [employer] EDMS Marzena De La Cruz, RN Hosea Christopher MD MD cha Rivera, Mary mr Smirch, Shelby, Rubina Thomas RN, lead security officer EKG Ttc
--- NOTE | 2020-01-28 10:19 | EDPHYS ---
Physician Documentation [facility] Name: Mynor Jenkins Age: 59 yrs Sex: Male : 1960 Arrival Date: 01/28/2020 Time: 08:35 Bed 20 Private MD: ED Physician Hosea Jones HPI: 01/27 09:30 This 59 yrs old Male presents to ER via Ambulatory with complaints of micah Dizziness. 09:30 The patient presents with dizziness, generalized weakness. Onset: The symptoms/episode micah began/occurred just prior to arrival. Context: occurred at home, occurred while the patient was walking. Modifying factors: The symptoms are alleviated by nothing, the symptoms are aggravated by nothing. Associated signs and symptoms: Pertinent positives: palpitations. Severity of symptoms: At their worst the symptoms were mild moderate in the emergency department the symptoms have improved mildly. Patient's baseline: Neuro: alert and fully oriented. The patient has not experienced similar symptoms in the past. Historical: - Allergies: 08:46 Hydrocodone-Acetaminophen; ss - PMHx: 08:46 Emphysema; High Cholesterol; Hypertension; ss - PSHx: 08:46 Hernia repair; Tonsillectomy; ss - Immunization history:: Adult Immunizations up to date. - Social history:: Smoking status: Patient denies any tobacco usage or history of. - Family history:: not pertinent. ROS: 09:30 Constitutional: Negative for fever, chills, and weight loss, Eyes: Negative for injury, micah pain, redness, and discharge, ENT: Negative for injury, pain, and discharge, Neck: Negative for injury, pain, and swelling, Respiratory: Negative for shortness of breath, cough, wheezing, and pleuritic chest pain, Abdomen/GI: Negative for abdominal pain, nausea, vomiting, diarrhea, and constipation, Back: Negative for injury and pain, : Negative for injury, bleeding, discharge, and swelling, MS/Extremity: Negative for injury and deformity, Skin: Negative for injury, rash, and discoloration, Psych: Negative for depression, anxiety, suicide ideation, homicidal ideation, and hallucinations, Allergy/Immunology: Negative for hives, rash, and allergies, Endocrine: Negative for neck swelling, polydipsia, polyuria, polyphagia, and marked weight changes, Hematologic/Lymphatic: Negative for swollen nodes, abnormal bleeding, and unusual bruising. 09:30 Cardiovascular: Positive for palpitations. 09:30 Neuro: Positive for dizziness, near syncope, weakness. Exam: 09:30 Constitutional: This is a well developed, well nourished patient who is awake, alert, micah and in no acute distress. Head/Face: Normocephalic, atraumatic. Eyes: Pupils equal round and reactive to light, extra-ocular motions intact. Lids and lashes normal. Conjunctiva and sclera are non-icteric and not injected. Cornea within normal limits. Periorbital areas with no swelling, redness, or edema. ENT: Nares patent. No nasal discharge, no septal abnormalities noted. Tympanic membranes are normal and external auditory canals are clear. Oropharynx with no redness, swelling, or masses, exudates, or evidence of obstruction, uvula midline. Mucous membranes moist. Neck: Trachea midline, no thyromegaly or masses palpated, and no cervical lymphadenopathy. Supple, full range of motion without nuchal rigidity, or vertebral point tenderness. No Meningismus. Chest/axilla: Normal chest wall appearance and motion. Nontender with no deformity. No lesions are appreciated. Cardiovascular: Regular rate and rhythm with a normal S1 and S2. No gallops, murmurs, or rubs. Normal PMI, no JVD. No pulse deficits. Respiratory: Lungs have equal breath sounds bilaterally, clear to auscultation and percussion. No rales, rhonchi or wheezes noted. No increased work of breathing, no retractions or nasal flaring. Abdomen/GI: Soft, non-tender, with normal bowel sounds. No distension or tympany. No guarding or rebound. No evidence of tenderness throughout. Back: No spinal tenderness. No costovertebral tenderness. Full range of motion. Male : Normal genitalia with no discharge or lesions. Skin: Warm, dry with normal turgor. Normal color with no rashes, no lesions, and no evidence of cellulitis. MS/ Extremity: Pulses equal, no cyanosis. Neurovascular intact. Full, normal range of motion. Neuro: Awake and alert, GCS 15, oriented to person, place, time, and situation. Cranial nerves II-XII grossly intact. Motor strength 5/5 in all extremities. Sensory grossly intact. Cerebellar exam normal. Normal gait. Psych: Awake, alert, with orientation to person, place and time. Behavior, mood, and affect are within normal limits. Vital Signs: 08:40 BP 139 / 91; Pulse 63; Resp 16; Temp 97.8(O); Pulse Ox 100% on R/A; Weight 102.97 kg; ss Height 5 ft. 10 in. (177.80 cm); Pain 0/10; 09:14 BP 141 / 87; Pulse 56 MON; Resp 17; Pulse Ox 96% on R/A; sv 10:14 BP 127 / 83; Pulse 65; Resp 16; Pulse Ox 99% ; sv 08:40 Body Mass Index 32.57 (102.97 kg, 177.80 cm) ss 09:14 Sinus bradycardia sv MDM: 08:47 Patient medically screened. micah 09:32 Differential diagnosis: cardiac arrhythmia, generalized weakness, GI bleed, micah hypovolemia, idiopathic dizziness, near-syncope, syncope. Data reviewed: vital signs, nurses notes, lab test result(s), EKG, radiologic studies. Data interpreted: lunchroom monitor: rate is 56 beats/min, rhythm is normal sinus rhythm, Pulse oximetry: on room air is 96 %. Test interpretation: by ED physician or midlevel provider: ECG, plain radiologic studies. Counseling: I had a detailed discussion with the patient and/or guardian regarding: the historical points, exam findings, and any diagnostic results supporting the discharge/admit diagnosis, lab results, radiology results, the need for outpatient follow up. 10:05 Physician consultation: dr jer colón want to double norvasc 5 mg bid, cont split micah dose of metoprolol, will call him today and plan on follow up in office if possible today. 10:08 ED course: all labs explained, and follow up discussed. micah 10:19 Awaiting: echo was normal, valves, wall motion normal.. micah 01/27 08:57 Order name: CBC with Diff; Complete Time: 09:47 micah 01/27 08:58 Order name: Basic Metabolic Panel; Complete Time: 09:47 sv 01/27 08:58 Order name: LFT's; Complete Time: 09:47 sv 01/27 08:58 Order name: Magnesium; Complete Time: 09:47 sv 01/27 08:58 Order name: NT PRO-BNP; Complete Time: 09:47 sv 01/27 08:58 Order name: PT-INR; Complete Time: 09:47 sv 01/27 08:58 Order name: Troponin (emerg Dept Use Only); Complete Time: 09:47 01/27 08:57 Order name: EKG; Complete Time: 08:58 [facility] 01/27 08:57 Order name: Cardiac monitoring; Complete Time: 08:59 [facility] 01/27 08:57 Order name: EKG - Nurse/Tech; Complete Time: 08:59 [facility] 01/27 08:57 Order name: IV Saline Lock; Complete Time: 09:07 [facility] 01/27 08:57 Order name: Labs collected and sent; Complete Time: 09:07 [facility] 01/27 08:57 Order name: O2 Per Protocol; Complete Time: 08:59 [facility] 01/27 08:57 Order name: O2 Sat Monitoring; Complete Time: 08:59 [facility] 01/27 08:58 Order name: XRAY Chest (1 view); Complete Time: 09:47 sv 01/27 09:49 Order name: Echo w/ Doppler bd Administered Medications: 09:54 Drug: NS 0.9% 1000 ml Route: IV; Rate: 125 ml/hr; Site: left antecubital; sv 10:50 Follow up: Response: No adverse reaction; IV Status: Order to discontinue infusion; IV sv Intake: 125ml 09:54 CANCELLED (Physician Discretion): Aspirin 162 mg PO once sv 09:54 Drug: Aspirin Chewable Tablet 324 mg Route: PO; sv 10:50 Follow up: Response: No adverse reaction sv Disposition: 01/28/20 10:19 Discharged to Home. Impression: Palpitations, Essential (primary) hypertension, Weakness, Ventricular premature depolarization. - Condition is Stable. - Discharge Instructions: Hypertension, Near-Syncope, Palpitations, Weakness, Near-Syncope, Dijc-wc-Duqa, Hypertension, Fpsf-lq-Dbpj, Weakness, Hsbm-pi-Tpje, Aspirin and Your Heart, Palpitations, Qstw-if-Fcnb. - Prescriptions for Lopressor 50 mg Oral tablet - take 0.5 tablet by ORAL route every 12 hours with a meal; 20 tablet. Norvasc 5 mg Oral Tablet - take 1 tablet by ORAL route every 12 hours; 40 tablet. - Medication Reconciliation Form, Thank You Letter, Antibiotic Education, Prescription Opioid Use form. - Follow up: Private Physician; When: 2 - 3 days; Reason: Recheck today's complaints, Continuance of care, Re-evaluation by your physician. - Problem is new. - Symptoms have improved. Signatures: Dispatcher [employer] EDME Marzena De La Cruz, RN RN Hoesa Ibrahim MD MD cha Smirch, Shelby, RN RN ss Corrections: (The following items were deleted from the chart) 08:58 08:58 Cardiac monitoring ordered. sv sv 08:58 08:58 EKG - Nurse/Tech ordered. sv sv 08:59 08:58 IV Saline Lock ordered. sv sv 08:59 08:58 Labs collected and sent ordered. sv sv 08:59 08:58 Oxygen Per Protocol ordered. sv sv 08:59 08:58 O2 Sat Monitoring ordered. sv sv 09:01 08:58 Chest Single View+RAD.RAD.BRZ ordered. [facility] EDMS 09:54 09:48 Aspirin 162 mg PO once ordered. [facility] sv 09:54 09:54 Aspirin 162 mg PO once ordered. sv sv 10:28 09:49 EC Echo Doppler W/Color Flow+ECHO.RAD.BRZ ordered. [facility] EDMS 11:21 10:19 01/28/2020 10:19 Discharged to Home. Impression: Palpitations; Essential sv (primary) hypertension; Weakness; Ventricular premature depolarization. Condition is Stable. Discharge Instructions: Hypertension, Near-Syncope, Palpitations, Weakness, Near-Syncope, Oqlm-va-Wcwp, Hypertension, Kcqs-bo-Pkve, Weakness, Bogv-ti-Dskt, Aspirin and Your Heart, Palpitations, Wxrt-nd-Nhqe. Prescriptions for Lopressor 50 mg Oral tablet - take 0.5 tablet by ORAL route every 12 hours with a meal; 20 tablet, Norvasc 5 mg Oral Tablet - take 1 tablet by ORAL route every 12 hours; 40 tablet. and Forms are Medication Reconciliation Form, Thank You Letter, Antibiotic Education, Prescription Opioid Use. Follow up: Private Physician; When: 2 - 3 days; Reason: Recheck today's complaints, Continuance of care, Re-evaluation by your physician. Problem is new. Symptoms have improved. miach
--- NOTE | 2020-01-28 10:43 | EKG ---
Test Date: 2020-01-28 Test Time: 08:53:48 Dictaphone Operator: MARCO ANTONIO MEASUREMENT RESULTS: Intervals: Rate: 56 NH: 188 QRSD: 114 QT: 424 QTc: 409 [place]: P: 37 NH: 188 QRS: -2 T: 28 INTERPRETIVE STATEMENTS: Sinus bradycardia with occasional premature ventricular complexes Otherwise normal ECG Compared to ECG 05/12/2004 07:20:00 Ventricular premature complex(es) now present Electronically Signed On 01-28-20 10:43:13 CDT by Keaton Tinajero
--- NOTE | 2020-01-28 12:08 | ECHO ---
HEIGHT: ft in WEIGHT: lb oz DATE OF STUDY: 01/28/[address]: Hosea Jones MD 2-DIMENSIONAL: YES M.MODE: YES DOPPLER: YES COLOR FLOW: YES TDS: NO PORTABLE: YES DEFINITY: NO BUBBLE STUDY: NO DIAGNOSIS: PALPITATIONS CARDIAC HISTORY: CATHERIZATION: NO SURGERY: NO PROSTHETIC VALVE: NO PACEMAKER: NO MEASUREMENTS (cm) DIASTOLIC (NORMALS) SYSTOLIC (NORMALS) IVSd 1.1 (0.6-1.2) LA Diam 3.0 (1.9-4.0) LVEF 61% LVIDd 5.5 (3.5-5.7) LVIDs 3.7 (2.0-3.5) %FS 33% LVPWd 1.3 (0.6-1.2) Ao Diam 2.9 (2.0-3.7) 2 DIMENSIONAL ASSESSMENT: RIGHT ATRIUM: NORMAL LEFT ATRIUM: NORMAL RIGHT VENTRICLE: NORMAL LEFT VENTRICLE: NORMAL TRICUSPID VALVE: NORMAL MITRAL VALVE: NORMAL PULMONIC VALVE: NORMAL AORTIC VALVE: NORMAL PERICARDIAL EFFUSION: NONE AORTIC ROOT: NORMAL LEFT VENTRICULAR WALL MOTION: NORMAL DOPPLER/COLOR FLOW: NORMAL COMMENTS: NORMAL 2D ECHOCARDIOGRAM WITH DOPPLER. NO WALL MOTION ABNORMALITY. NO EFFUSION. TECHNOLOGIST: Val ROMAN
[2020-02-01 11:47] VITALS: TEMP 97.8
[2020-02-01 11:50] VITALS: BP 127/83; O2SAT 99
== END 2020-01-28 11:21 | disposition home or self-care (01) ==
LOC: ER 08:30
DX: I49.3 Ventricular premature depolarization (principal); R00.2 Palpitations; I10 Essential (primary) hypertension; R53.1 Weakness; Z88.6 Allergy status to analgesic agent
CPT/HCPCS: 36415; 71045; 80048; 80076; 83735; 83880; 84484; 85025; 85610; 93005; 93306; 96360; 99284

== ENCOUNTER 2021-08-19 08:32 | Emergency (ER) | payer BC ==
--- OUTSIDE RECORDS SUMMARY | 2021-08-19 08:34 | XMS REPORT | Continuity of Care Document ---
:1960 Author Organization [facility] t Address [facility] [place] [address] Care Team Providers Name Role Phone MELODY NARAYAN Attending Clinician Unavailable Goldfarb_R Attending Clinician Unavailable Evette Attending Clinician [phone] LEI Attending Clinician Unavailable ANNY HART Attending Clinician Unavailable Goldfarb_R Admitting Clinician Unavailable Payers Payer Name Policy Type Policy Number Effective Date Expiration Date S sa[place] [id number] 2011 00:00:00 Problems This patient has no known problems. Allergies, Adverse Reactions, Alerts This patient has no known allergies or adverse reactions. Medications This patient has no known medications. Procedures This patient has no known procedures. Encounters Start End Encounter Admission Attending Care Care Encounter Source Date/Time Date/Time Type Type Clinicians Facility Department ID 2020-10-30 Outpatient [id number] 08:03:28 [place] 2021-01-25 2021-01-25 Outpatient Goldfarb_R [facility] [id number] 12:31:00 12:31:00 [id number] 2021-01-13 2021-01-13 Outpatient Goldfarb_R [facility] [id number] 10:41:00 10:41:00 [id number] [facility] 2021-01-13 2021-01-13 Outpatient Evette, [facility] [id number] 00:00:00 00:00:00 Myles [id number] 2021-01-07 2021-01-07 Outpatient Goldfarb_R [facility] [address] 11:26:00 11:26:00 [id number] [facility] 2020-11-24 2020-11-24 Outpatient HELENE, [id number] 10:50:00 14:10:00 HORTENSIA 2020-09-29 2020-09-29 Outpatient Goldfarb_R [facility] [address] 12:12:00 12:12:00 [id number] [facility] 2020-09-29 2020-09-29 Outpatient Goldfarb_R [facility] [address] 12:12:00 12:12:00 [id number] [facility] 2020-08-26 2020-08-26 Outpatient MAHMARIAN, [facility] [id number] [place] 00:00:00 00:00:00 FILEMON [address] 2020-07-01 2020-07-01 Outpatient ELOYIAN, [facility] [id number] [place] 00:00:00 00:00:00 FILEMON [address] 2020-06-17 2020-06-17 Outpatient ELOYIAN, [facility] [id number] [place] 00:00:00 00:00:00 FILEMON [address] 2020-06-14 2020-06-14 Emergency E MOHAMED, [id number] 10:03:00 15:40:00 ABDIWAHAB 2020-03-02 2020-03-02 Outpatient ELOYIAN, [facility] [id number] [place] 00:00:00 00:00:00 FILEMON [address] 2020-01-28 2020-01-28 Outpatient ELOYIAN, [facility] [id number] [place] 00:00:00 00:00:00 FILEMON [address] 2020-01-28 2020-01-28 Outpatient SILASMARIAN, [facility] [id number] [place] 00:00:00 00:00:00 FILEMON [address] 2020-01-28 2020-01-28 Outpatient ELOYIAN, [facility] [id number] [place] 00:00:00 00:00:00 FILEMON [address] 2020-01-20 2020-01-20 Outpatient MAHMARIAN, [facility] [id number] [place] 00:00:00 00:00:00 FILEMON [facility] Results This patient has no known results.
[2021-08-19] MEDS ORDERED: ASPIRIN 81 MG CHEWABLE TABLET ONE (09:01)
[2021-08-19 09:05] LABS: Absolute Lymphocytes (CBC) 1.7 K/uL (0.7-4.9); Hematocrit 43.8 % (39.6-49.0); Lymphocytes % 30.1 % (15.3-44.8); MPV 7.1 fL (7.6-11.3); RBC Red Blood Cell Count 5.07 M/uL (4.33-5.43)
[2021-08-19 09:24] LABS: Albumin 4.2 g/dL (3.4-5.0); Bilirubin Direct 0.2 mg/dL (0-0.2); Bilirubin Total 0.5 mg/dL (0.2-1.0); Potassium 3.9 mmol/L (3.5-5.1); Protein, Total 7.5 g/dL (6.4-8.2); Troponin High Sensitivity 7.6 pg/mL (<58.9)
--- NOTE | 2021-08-19 10:29 | RAD REPORT ---
EXAM DESCRIPTION: Tod Single View08/19/2021 9:59 am CLINICAL HISTORY: Chest pain COMPARISON: 2019 FINDINGS: Bilateral calcified lung granulomas. The lungs appear clear of acute infiltrate. The heart is normal size IMPRESSION: No acute abnormalities displayed
--- NOTE | 2021-08-19 12:49 | EDPHYS ---
Physician Documentation [facility] Name: Mynor Jenkins Age: 61 yrs Sex: Male : 1960 Arrival Date: 08/19/2021 Time: 08:34 Bed 14 Private MD: ED Physician Yusuf Rock HPI: 08/19 08:48 This 61 yrs old Male presents to ER via Ambulatory with complaints of Chest Tightness. ms3 09:00 The patient or guardian reports chest pain that is located primarily in the substernal ms3 area. Onset: this morning. The pain does not radiate. Associated signs and symptoms: Pertinent positives: nausea, Pertinent negatives: shortness of breath, vomiting. The chest pain is described as "uncomfortable". 09:12 Modifying factors: The symptoms are alleviated by nothing. the symptoms are aggravated ms3 by nothing. Severity of pain: At its worst the pain was mild in the emergency department the pain is unchanged. 61-year-old male with past medical history of hyperlipidemia, hypertension, emphysema presents for chest tightness began at 7:15 AM. Patient states the pain is in "uncomfortable" feeling across his chest that he rates a 1/10. Patient denies alleviating or inciting factors. Patient states he does have nausea. Patient denies shortness of breath, or diaphoresis.. Historical: - Allergies: 08:47 Hydrocodone-Acetaminophen; jg9 - PMHx: 08:47 Emphysema; High Cholesterol; Hypertension; jg9 - PSHx: 08:47 Tonsillectomy; hernia repair; jg9 - Immunization history:: Client reports receiving the 2nd dose of the Covid vaccine, Pneumococcal vaccine is up to date, Flu vaccine is up to date. - Social history:: Smoking status: Patient denies any tobacco usage or history of. ROS: 09:12 Constitutional: Negative for fever, and chills. Eyes: Negative for injury, pain, ms3 redness, and discharge, ENT: Negative for injury, pain, and discharge, Neck: Negative for injury, pain, and swelling, Respiratory: Negative for shortness of breath, cough, wheezing, and pleuritic chest pain, Abdomen/GI: Negative for abdominal pain, nausea, vomiting, diarrhea, and constipation, Back: Negative for injury and pain, : Negative for injury, bleeding, discharge, and swelling, MS/Extremity: Negative for injury and deformity, Skin: Negative for injury, rash, and discoloration, Neuro: Negative for headache, weakness, numbness, tingling. 09:12 Cardiovascular: Positive for chest pain. 09:12 All other systems are negative. Exam: 08:45 ECG was reviewed by the Attending Physician. ms3 09:12 Constitutional: This is a well developed, well nourished patient who is awake, alert, ms3 and in no acute distress. Head/Face: Normocephalic, atraumatic. Neck: Trachea midline, no cervical lymphadenopathy. Supple, full range of motion without nuchal rigidity, or vertebral point tenderness. No Meningismus. Chest/axilla: Normal chest wall appearance and motion. Nontender with no deformity. Cardiovascular: Regular rate and rhythm with a normal S1 and S2. No gallops, murmurs, or rubs. Normal PMI, no JVD. No pulse deficits. Respiratory: Lungs have equal breath sounds bilaterally, clear to auscultation and percussion. No rales, rhonchi or wheezes noted. No increased work of breathing, no retractions or nasal flaring. Abdomen/GI: Soft, non-tender, with normal bowel sounds. No distension or tympany. No guarding or rebound. No evidence of tenderness throughout. Back: No spinal tenderness. No costovertebral tenderness. Full range of motion. Skin: Warm, dry with normal turgor. Normal color with no rashes, no lesions, and no evidence of cellulitis. MS/ Extremity: Pulses equal, no cyanosis. Neurovascular intact. Full, normal range of motion. Vital Signs: 08:45 BP 141 / 76; Pulse 54; Resp 18 S; Temp 98.0(O); Pulse Ox 99% on R/A; Weight 102.06 kg jg9 (R); Height 5 ft. 10 in. (177.80 cm); Pain 06/14; 08:45 BP 143 / 88; Pulse 54; Resp 17; Pulse Ox 100% on R/A; jg9 09:30 BP 117 / 82; Pulse 52; Resp 16 S; Pulse Ox 94% on R/A; jg9 10:30 BP 133 / 86; Pulse 49; Resp 17 S; Pulse Ox 97% ; jg9 11:30 BP 132 / 88; Pulse 63; Resp 17; Pulse Ox 96% on R/A; jg9 12:00 BP 130 / 85; Pulse 59; Resp 17 S; Pulse Ox 96% on R/A; jg9 08:45 Body Mass Index 32.28 (102.06 kg, 177.80 cm) jg9 MDM: 08:46 Patient medically screened. ms3 08/19 08:49 Order name: Basic Metabolic Panel; Complete Time: 09:35 ms3 08/19 08:49 Order name: CBC with Diff; Complete Time: 09:35 ms3 08/19 08:49 Order name: LFT's; Complete Time: 09:35 ms3 08/19 08:49 Order name: Troponin HS; Complete Time: 09:35 ms3 08/19 08:49 Order name: XRAY Chest (1 view); Complete Time: 10:38 ms3 08/19 09:37 Order name: Troponin High Sensitivity: Draw at 1155; Complete Time: 12:37 ms3 08/19 08:49 Order name: EKG; Complete Time: 08:50 ms3 08/19 08:49 Order name: Cardiac monitoring; Complete Time: 08:56 ms3 08/19 08:49 Order name: EKG - Nurse/Tech; Complete Time: 08:56 ms3 08/19 08:49 Order name: IV Saline Lock; Complete Time: 08:56 ms3 08/19 08:49 Order name: Labs collected and sent; Complete Time: 08:56 ms3 08/19 08:49 Order name: O2 Sat Monitoring; Complete Time: 08:56 ms3 EC:45 Rate is 60 beats/min. Rhythm is regular. QRS [place] is Normal. Clinical impression: ms3 Normal ECG. Interpreted by me. Administered Medications: 09:03 Not Given (Patient took full dose of aspirin (325mg) this morning): Aspirin Chewable jg9 Tablet 324 mg PO once; 81 mg tablets x 4 Disposition Summary: 08/19/21 12:48 Discharge Ordered Location: Home ms3 Condition: Stable ms3 Diagnosis - Chest pain, unspecified ms3 - Dizziness ms3 Followup: ms3 - With: Private Physician - When: 1 - 2 days - Reason: Re-evaluation by your physician Discharge Instructions: - Discharge Summary Sheet ms3 - Nonspecific Chest Pain, Adult ms3 Forms: - Medication Reconciliation Form ms3 - Thank You Letter ms3 - Antibiotic Education ms3 - Prescription Opioid Use ms3 Signatures: Dispatcher [employer] EDYusuf Garner DO DO ms3 Estefani Meraz, RN RN jg9
--- NOTE | 2021-08-19 12:49 | ER ---
Nurse's Notes [facility] Name: Mynor Jenkins Age: 61 yrs Sex: Male : 1960 Arrival Date: 08/19/2021 Time: 08:34 Bed 14 Private MD: Diagnosis: Chest pain, unspecified;Dizziness Presentation: 08/19 08:45 Chief complaint: Patient states: Chest tightness and dizziness that started at 0715. jg9 Coronavirus screen: Vaccine status: Patient reports receiving the 2nd dose of the covid vaccine. Moderna. Ebola Screen: Patient negative for fever greater than or equal to 101.5 degrees Fahrenheit, and additional compatible Ebola Virus Disease symptoms Patient denies exposure to infectious person. Patient denies travel to an Ebola-affected area in the 21 days before illness onset. Initial Sepsis Screen: Does the patient meet any 2 criteria? No. Patient's initial sepsis screen is negative. Does the patient have a suspected source of infection? No. Patient's initial sepsis screen is negative. Risk Assessment: Do you want to hurt yourself or someone else? Patient reports no desire to harm self or others. Onset of symptoms was August 19, 2021. 08:45 Method Of Arrival: Ambulatory 9 08:45 Acuity: JAYJAY 3 jg9 Triage Assessment: 08:48 General: Appears in no apparent distress. Behavior is calm, cooperative. Pain: jg9 Complains of pain in chest. Cardiovascular: Reports chest pain, since 0715. Historical: - Allergies: 08:47 Hydrocodone-Acetaminophen; jg9 - PMHx: 08:47 Emphysema; High Cholesterol; Hypertension; jg9 - PSHx: 08:47 Tonsillectomy; hernia repair; jg9 - Immunization history:: Client reports receiving the 2nd dose of the Covid vaccine, Pneumococcal vaccine is up to date, Flu vaccine is up to date. - Social history:: Smoking status: Patient denies any tobacco usage or history of. Screenin:54 Abuse screen: Denies threats or abuse. Denies injuries from another. Nutritional jg9 screening: No deficits noted. Tuberculosis screening: No symptoms or risk factors identified. Fall Risk None identified. Assessment: 08:55 Pain: Pain does not radiate. Pain began 2 hours ago. jg9 Vital Signs: 08:45 BP 141 / 76; Pulse 54; Resp 18 S; Temp 98.0(O); Pulse Ox 99% on R/A; Weight 102.06 kg jg9 (R); Height 5 ft. 10 in. (177.80 cm); Pain 06/14; 08:45 BP 143 / 88; Pulse 54; Resp 17; Pulse Ox 100% on R/A; jg9 09:30 BP 117 / 82; Pulse 52; Resp 16 S; Pulse Ox 94% on R/A; jg9 10:30 BP 133 / 86; Pulse 49; Resp 17 S; Pulse Ox 97% ; jg9 11:30 BP 132 / 88; Pulse 63; Resp 17; Pulse Ox 96% on R/A; jg9 12:00 BP 130 / 85; Pulse 59; Resp 17 S; Pulse Ox 96% on R/A; jg9 08:45 Body Mass Index 32.28 (102.06 kg, 177.80 cm) jg9 ED Course: 08:34 Patient arrived in ED. ds1 08:36 Yusuf Rock DO is Attending Physician. ms3 08:38 Estefani Meraz, NEPTALI is Primary Nurse. jg9 08:47 Triage completed. jg9 08:55 Arm band placed on right wrist. jg9 08:55 Patient has correct armband on for positive identification. desk monitor on. jg9 08:55 Patient maintains SpO2 saturation greater than 95% on room air. jg9 08:56 Inserted saline lock: 20 gauge in right forearm, using aseptic technique. Blood jg9 collected. 09:48 No apparent distress. Resting quietly. Awaiting lab results, Awaiting radiology results.jg9 09:58 XRAY Chest (1 view) In Process Unspecified. EDMS 12:52 No provider procedures requiring assistance completed. jg9 12:52 IV discontinued. jg9 Administered Medications: 09:03 Not Given (Patient took full dose of aspirin (325mg) this morning): Aspirin Chewable jg9 Tablet 324 mg PO once; 81 mg tablets x 4 Outcome: 12:48 Discharge ordered by . ms3 12:52 Discharged to home ambulatory. jg9 12:52 Condition: improved 12:52 Discharge instructions given to patient, Instructed on discharge instructions, follow up and referral plans. Demonstrated understanding of instructions, follow-up care. 12:52 Patient left the ED. jg9 Signatures: Dispatcher [employer] Harmony Gupta ds1 Yusuf Rock DO DO ms3 Estefani Meraz RN RN jg9
[2021-08-19 13:10] VITALS: TEMP 98
[2021-08-19 13:14] VITALS: O2SAT 96
[2021-08-19 13:15] VITALS: BP 130/85
--- NOTE | 2021-08-23 08:31 | EKG ---
Test Date: 2021-08-19 Test Time: 08:45:17 Drywall Sander: VINICIO MEASUREMENT RESULTS: Intervals: Rate: 60 NH: 170 QRSD: 110 QT: 434 QTc: 434 Crouse: P: 35 NH: 170 QRS: -9 T: 12 INTERPRETIVE STATEMENTS: Normal sinus rhythm Normal ECG Compared to ECG 01/28/2020 08:53:48 Sinus bradycardia no longer present Ventricular premature complex(es) no longer present Electronically Signed On 08-23-21 08:23:47 CDT by Keaton Tinajero
== END 2021-08-19 12:52 | disposition home or self-care (01) ==
LOC: ER 08:32
DX: R07.9 Chest pain, unspecified (principal); R42 Dizziness and giddiness; I10 Essential (primary) hypertension; E78.00 Pure hypercholesterolemia, unspecified
CPT/HCPCS: 36415; 71045; 80048; 80076; 84484; 85025; 93005; 99285

== ENCOUNTER 2022-08-26 10:20 | Emergency (ER) | payer BC ==
--- OUTSIDE RECORDS SUMMARY | 2022-08-26 10:27 | XMS REPORT | Continuity of Care Document ---
:1960 Author Organization [facility] t Address [address] [place] [address] Care Team Providers Name Role Phone Silvestre Avery MD Primary Care Physician [phone] HORTENSIA NARAYAN Attending Clinician Unavailable Filemon Shen MD Attending Clinician [phone] Jeana Downs RN Attending Clinician Unavailable Hughfarb_Shanon Attending Clinician Unavailable Myles Alas Attending Clinician [phone] Manisha Castillo MA Attending Clinician Unavailable OLIVIA HART Attending Clinician Unavailable Hughfarb_Shanon Admitting Clinician Unavailable Payers Payer Name Policy Type Policy Number Effective Date Expiration Date S saur[place]h [place] [id number] 2011 00:00:00 Problems Condition Condition Condition Status Onset Resolution Last Treating Co mments Source Name Details Category Date Date Treatment Clinician Date Erectile Erectile Problem Active [place] dysfunctio Dysfunctio 8-10 Me tro n n 00:00: Urology 00 Family Family Problem Active [place] history of History of 1-14 Me tro prostate Prostate 00:00: Urolog y cancer Cancer 00 Lower Lower Problem Active [place] urinary Urinary 1-14 [place] tract Tract 00:00: Urology symptoms Symptoms 00 due to Due to benign Benign prostatic Prostatic hypertroph Hypertroph y y Allergies, Adverse Reactions, Alerts Allergy Allergy Status Severity Reaction(s) Onset Inactive Treating Comm ents Source Name Type Date Date Clinician Hydrocod Propensi Active Anaphylaxis Throat M ethodi one ty to 8-[address] adverse 00:00: Hospita reaction 00 l s to drug Hydrocod Allergy Active [place] one to [facility] Urology e Family History Family Member Diagnosis Comments Start Date Stop Date Source Natural father Heart failure [facility] Natural mother Diabetes [facility] Natural mother Lymphoma [facility] Social History Social Habit Start Date Stop Date Quantity Comments Source [facility] of [facility] Alcohol intake 2021-09-03 2021-09-03 Current drinker of [facility] 00:00:00 [facility]00[facility] Tobacco use and 2021-08-30 2021-08-30 Smokeless tobacco [facility] exposure 00:00:00 00:00:00 non-user Hospital Alcohol Comment 2021-08-30 2021-08-30 ocasionally Method t 00:00:00 00:00:00 Hospital Sex Assigned At [birth year] [facility] 00:00:00 00:00:00 Hospital Smoking Status Start Date Stop Date Source Ex-smoker 2021-08-30 00:00:00 2021-08-30 00:00:00 [facility] Medications Ordered Filled Start Stop Current Ordering Indication Dosage Frequency Signature Comments Components Source Medication Medication Date Date Medication? Clinician (SIG) Name Name atenoloL Yes 12.5mg QD Take 0.5 Met hodi (TENORMIN) 3-[address] 25 MG 00:00: (12.5 mg Hospita tablet 00 total) by l mouth daily. atenoloL Yes TAKE 1 Methodi (TENORMIN) 1-03 TABLET(25 st 25 MG 00:00: MG) BY Hospita tablet 00 MOUTH l DAILY atenoloL 2022- No TAKE 1 Method i (TENORMIN) 1-03 03-08 TABLET(25 st 25 MG 00:00: 00:00 MG) BY Hospita tablet 00 :00 MOUTH l DAILY amLODIPine 2021-06 Yes TAKE 1 Metho di (NORVASC) 5 2-19 TABLET(5 st mg tablet 00:00: MG) BY Hospit a 00 MOUTH l TWICE DAILY amLODIPine 2021-06 Yes TAKE 1 Metho di (NORVASC) 5 2-19 TABLET(5 st mg tablet 00:00: MG) BY Hospit a 00 MOUTH l TWICE DAILY ezetimibe Yes TAKE 1 Method i (ZETIA) 10 9-13 TABLET(10 st mg tablet 00:00: MG) BY Hospit a 00 MOUTH l DAILY ezetimibe Yes TAKE 1 Method i (ZETIA) 10 9-13 TABLET(10 st mg tablet 00:00: MG) BY Hospit a 00 MOUTH l DAILY ezetimibe Yes TAKE 1 Method i (ZETIA) 10 9-13 TABLET(10 st mg tablet 00:00: MG) BY Hospit a 00 MOUTH l DAILY ezetimibe Yes TAKE 1 Method i (ZETIA) 10 9-13 TABLET(10 st mg tablet 00:00: MG) BY Hospit a 00 MOUTH l DAILY rosuvastati 0 Yes 20mg QD Take 1 Meth sari n (CRESTOR) 5-24 tablet (20 st 20 mg 00:00: mg total) Hospita tablet 00 by mouth l every evening. rosuvastati 2021-0 Yes 20mg QD Take 1 Meth sari n (CRESTOR) 5-24 tablet (20 st 20 mg 00:00: mg total) Hospita tablet 00 by mouth l every evening. rosuvastati 2-0 Yes 20mg QD Take 1 Meth sari n (CRESTOR) 5-24 tablet (20 st 20 mg 00:00: mg total) Hospita tablet 00 by mouth l every evening. rosuvastati 2021-0 Yes 20mg QD Take 1 Meth sari n (CRESTOR) 5-24 tablet (20 st 20 mg 00:00: mg total) Hospita tablet 00 by mouth l every evening. tadalafiL 0 Yes 20mg 20 mg as Meth sari (CIALIS) 20 3-[address] mg tablet 10:16: Hospita 07 l testosteron Yes testostero Methodi e cypionate 3-[address] (DEPOTESTOT 10:16: cypionate H ospita ERONE 07 200 mg/mL l CYPIONATE) intramuscu 200 mg/mL lar oil injection INJECT 0.5 ML IN THE MUSCLE TWICE WEEKLY tadalafiL Yes 20mg 20 mg as Meth sari (CIALIS) 20 3-[address] mg tablet 10:16: Hospita 07 l testosteron Yes testostero Methodi e cypionate 3- ne st (DEPOTESTOT 10:16: cypionate H ospita ERONE 07 200 mg/mL l CYPIONATE) intramuscu 200 mg/mL lar oil injection INJECT 0.5 ML IN THE MUSCLE TWICE WEEKLY tadalafiL Yes 20mg 20 mg as Meth sari (CIALIS) 20 3-[address] mg tablet 10:16: Hospita 07 l testosteron Yes testostero Methodi e cypionate 3- ne st (DEPOTESTOT 10:16: cypionate H ospita ERONE 07 200 mg/mL l CYPIONATE) intramuscu 200 mg/mL lar oil injection INJECT 0.5 ML IN THE MUSCLE TWICE WEEKLY tadalafiL Yes 20mg 20 mg as Meth sari (CIALIS) 20 3- needed. st mg tablet 10:16: Hospita 07 l testosteron Yes testostero Methodi e cypionate 3- ne st (DEPOTESTOT 10:16: cypionate H ospita ERONE 07 200 mg/mL l CYPIONATE) intramuscu 200 mg/mL lar oil injection INJECT 0.5 ML IN THE MUSCLE TWICE WEEKLY atenoloL 2020-06 Yes TAKE 1 Methodi (TENORMIN) 2-14 TABLET(25 st 25 MG 00:00: MG) BY Hospita tablet 00 MOUTH l DAILY amLODIPine 2020-06 Yes TAKE 1 Metho di (NORVASC) 5 2-14 TABLET(5 st mg tablet 00:00: MG) BY Hospit a 00 MOUTH l TWICE DAILY atenoloL 2020-06 Yes TAKE 1 Methodi (TENORMIN) 2-14 TABLET(25 st 25 MG 00:00: MG) BY Hospita tablet 00 MOUTH l DAILY amLODIPine 2020-06 Yes TAKE 1 Metho di (NORVASC) 5 2-14 TABLET(5 st mg tablet 00:00: MG) BY Hospit a 00 MOUTH l TWICE DAILY atenoloL 2020-06- No TAKE 1 Method i (TENORMIN) 2-14 01-03 TABLET(25 st 25 MG 00:00: 00:00 MG) BY Hospita tablet 00 :00 MOUTH l DAILY atenoloL 2020-06- No TAKE 1 Method i (TENORMIN) 07-19 TABLET(25 st 25 MG 00:00: 00:00 MG) BY Hospita tablet 00 :00 MOUTH l DAILY amLODIPine 2020-06- No TAKE 1 Meth sari (NORVASC) 5 07-19 TABLET(5 st mg tablet 00:00: 00:00 MG) BY Hospi ta 00 :00 MOUTH l TWICE DAILY amLODIPine 2020-06- No TAKE 1 Meth sari (NORVASC) 5 07-19 TABLET(5 st mg tablet 00:00: 00:00 MG) BY Hospi ta 00 :00 MOUTH l TWICE DAILY rosuvastati 2021- No TAKE 1 Met hodi n (CRESTOR) 02-2224 TABLET(10 st 10 mg 00:00: 00:00 MG) BY Hospita tablet 00 :00 MOUTH l DAILY rosuvastati 2021- No TAKE 1 Met hodi n (CRESTOR) 02-2224 TABLET(10 st 10 mg 00:00: 00:00 MG) BY Hospita tablet 00 :00 MOUTH l DAILY rosuvastati 2021- No TAKE 1 Met hodi n (CRESTOR) 02-22-24 TABLET(10 st 10 mg 00:00: 00:00 MG) BY Hospita tablet 00 :00 MOUTH l DAILY rosuvastati 2021- No TAKE 1 Met hodi n (CRESTOR) 02-22-24 TABLET(10 st 10 mg 00:00: 00:00 MG) BY Hospita tablet 00 :00 MOUTH l DAILY ezetimibe 2021- No TAKE 1 Metho di (ZETIA) 10 02-17 TABLET(10 st mg tablet 00:00: 00:00 MG) BY Hospi ta 00 :00 MOUTH l DAILY ezetimibe 2021- No TAKE 1 Metho di (ZETIA) 10 02-17 TABLET(10 st mg tablet 00:00: 00:00 MG) BY Hospi ta 00 :00 MOUTH l DAILY ezetimibe 2021- No TAKE 1 Metho di (ZETIA) 10 02-17 TABLET(10 st mg tablet 00:00: 00:00 MG) BY Hospi ta 00 :00 MOUTH l DAILY ezetimibe 2021- No TAKE 1 Metho di (ZETIA) 10 02-17 TABLET(10 st mg tablet 00:00: 00:00 MG) BY Hospi ta 00 :00 MOUTH l DAILY atenoloL No 25mg QD Take 1 Method i (TENORMIN) 06-1714 tablet (25 st 25 MG 00:00: 00:00 mg total) Hospit a tablet 00 :00 by mouth l daily. atenoloL No 25mg QD Take 1 Method i (TENORMIN) 06-17 tablet (25 st 25 MG 00:00: 00:00 mg total) Hospit a tablet 00 :00 by mouth l daily. amLODIPine 2019-06 No 5mg Q.5D Take 1 Meth sari (NORVASC) 5 06-27-14 tablet (5 st mg tablet 00:00: 00:00 mg total) Ho spita 00 :00 by mouth 2 l (two) times a day. amLODIPine 2019-06 No 5mg Q.5D Take 1 Meth sari (NORVASC) 5 06-27-14 tablet (5 st mg tablet 00:00: 00:00 mg total) Ho spita 00 :00 by mouth 2 l (two) times a day. rosuvastati rosuvastati No rosuvastat [place] n 10 mg n 10 mg in 10 mg [facility] tablet tablet tablet Urology Shingrix Shingrix No Shingrix [place] (PF) 50 (PF) 50 (PF) 50 [facility] mcg/0.5 mL mcg/0.5 mL mcg/0.5 mL Urology intramuscul intramuscul intramuscu ar ar lar suspension, suspension, suspension kit ADM kit ADM , kit ADM 0.5ML IM 0.5ML IM 0.5ML IM UTD UTD UTD testosteron testosteron No testostero [place] e e ne [facility] testosteron testosteron No testostero [place]uin e cypionate e cypionate ne M etro 200 mg/mL 200 mg/mL cypionate Urology intramuscul intramuscul 200 mg/mL ar oil ar oil intramuscu INJECT 0.5 INJECT 0.5 lar oil ML IN THE ML IN THE INJECT 0.5 MUSCLE MUSCLE ML IN THE TWICE TWICE MUSCLE WEEKLY WEEKLY TWICE WEEKLY Viagra 100 Viagra 100 No 1 Viagra 100 [place] mg tablet mg tablet mg tablet [place] Take 1 Take 1 Take 1 Urology tablet as tablet as tablet as needed by needed by needed by oral route. oral route. oral route. amlodipine amlodipine No amlodipine [place] 5 mg tablet 5 mg tablet 5 mg M etro tablet Urology Aspir-81 Aspir-81 No Aspir-81 [place] [facility] atenolol 25 atenolol 25 No atenolol [place] mg tablet mg tablet 25 mg Metr o tablet Urology BD Luer-Kosta BD Lu[place] No BD [place] Syringe 3 Syringe 3 Luer-Kosta M etro mL 21 gauge mL 21 gauge Syringe 3 Urology x 1" USE 1 x 1" USE 1 mL 21 IN THE IN THE gauge x 1" MUSCLE MUSCLE USE 1 IN TWICE TWICE THE MUSCLE WEEKLY WEEKLY TWICE WEEKLY Cialis 20 Cialis 20 No 1 Cialis 20 [place] mg tablet mg tablet mg tablet [place] Take 1 Take 1 Take 1 Urology tablet as tablet as tablet as needed by needed by needed by oral route oral route oral route as directed as directed as for 20 for 20 directed days. days. for 20 days. ezetimibe ezetimibe No ezetimibe [place] 10 mg 10 mg 10 mg [facility] tablet tablet tablet Urology ezetimibe ezetimibe No ezetimibe [place] 10 10 10 [facility] mg-simvasta mg-simvasta mg-simvast Urology tin 10 mg tin 10 mg atin 10 mg tablet TAKE tablet TAKE tablet 1 TABLET BY 1 TABLET BY TAKE 1 MOUTH DAILY MOUTH DAILY TABLET BY MOUTH DAILY metoprolol metoprolol No metoprolol [place] succinate succinate succinate [facility] ER 25 mg ER 25 mg ER 25 mg Uro logy tablet,exte tablet,exte tablet,ext nded nded ended release 24 release 24 release 24 hr TK 1 T hr TK 1 T hr TK 1 T PO D PO D PO D pantoprazol pantoprazol No pantoprazo [place] e 40 mg e 40 mg le 40 mg [place] tablet,lana tablet,lana tablet,del Urology yed release yed release ayed TAKE 1 TAKE 1 release TABLET BY TABLET BY TAKE 1 MOUTH DAILY MOUTH DAILY TABLET BY MOUTH DAILY prednisone prednisone No prednisone [place] 10 mg 10 mg 10 mg [facility] tablet tablet tablet Urology rosuvastati rosuvastati No rosuvastat [place] n 10 mg n 10 mg in 10 mg [facility] tablet tablet tablet Urology rosuvastati rosuvastati No rosuvastat [place] n 20 mg n 20 mg in 20 mg [facility] tablet tablet tablet Urology testosteron testosteron No testostero [place] e e ne [facility] U[facility] testosteron testosteron No testostero [place] e cypionate e cypionate ne M etro 200 mg/mL 200 mg/mL cypionate Urology intramuscul intramuscul 200 mg/mL ar oil ar oil intramuscu INJECT 0.5 INJECT 0.5 lar oil ML IN THE ML IN THE INJECT 0.5 MUSCLE MUSCLE ML IN THE TWICE TWICE MUSCLE WEEKLY WEEKLY TWICE WEEKLY amlodipine amlodipine No amlodipine [place] 5 mg tablet 5 mg tablet 5 mg M etro tablet Urology Aspir-81 Aspir-81 No Aspir-81 [place] [facility] atenolol 25 atenolol 25 No atenolol [place] mg tablet mg tablet 25 mg Metr o tablet Urology BD Luer-[place]osta BD [place] No BD [place] Syringe 3 Syringe 3 Luer-Kosta M etro mL 21 gauge mL 21 gauge Syringe 3 Urology x 1" USE 1 x 1" USE 1 mL 21 IN THE IN THE gauge x 1" MUSCLE MUSCLE USE 1 IN TWICE TWICE THE MUSCLE WEEKLY WEEKLY TWICE WEEKLY benzonatate benzonatate No benzonatat [place] 200 mg 200 mg e 200 mg [facility] capsule capsule capsule Urolog y Cialis 20 Cialis 20 No 1 Cialis 20 [place] mg tablet mg tablet mg tablet [place] Take 1 Take 1 Take 1 Urology tablet as tablet as tablet as needed by needed by needed by oral route oral route oral route as directed as directed as for 20 for 20 directed days. days. for 20 days. ezetimibe ezetimibe No ezetimibe [place] 10 10 10 [facility] mg-simvasta mg-simvasta mg-simvast Urology tin 10 mg tin 10 mg atin 10 mg tablet TAKE tablet TAKE tablet 1 TABLET BY 1 TABLET BY TAKE 1 MOUTH DAILY MOUTH DAILY TABLET BY MOUTH DAILY meloxicam meloxicam No meloxicam [place] 15 mg 15 mg 15 mg [facility] tablet TAKE tablet TAKE tablet Urology 1 TABLET BY 1 TABLET BY TAKE 1 MOUTH EVERY MOUTH EVERY TABLET BY DAY WITH DAY WITH MOUTH MEALS MEALS EVERY DAY WITH MEALS metoprolol metoprolol No metoprolol [place] succinate succinate succinate [place] ER 25 mg ER 25 mg ER 25 mg Uro logy tablet,exte tablet,exte tablet,ext nded nded ended release 24 release 24 release 24 hr TK 1 T hr TK 1 T hr TK 1 T PO D PO D PO D pantoprazol pantoprazol No pantoprazo [place] e 40 mg e 40 mg le 40 mg [facility] tablet,lana tablet,lana tablet,del Urology yed release yed release ayed TAKE 1 TAKE 1 release TABLET BY TABLET BY TAKE 1 MOUTH DAILY MOUTH DAILY TABLET BY MOUTH DAILY Immunizations Ordered Immunization Filled Immunization Date Status Commen Source Name Name influenza, influenza, 2020-04-05 Completed [facility] injectable, injectable, 00:00:00 Urology quadrivalent quadrivalent influenza, influenza, 2020-04-05 Completed [facility] injectable, injectable, 00:00:00 Urology quadrivalent quadrivalent influenza, influenza, 2019-04-05 Completed [facility] injectable, injectable, 00:00:00 Urology quadrivalent quadrivalent influenza, influenza, 2019-04-05 Completed [facility] injectable, injectable, 00:00:00 Urology quadrivalent quadrivalent influenza, influenza, 2018-04-15 Completed [facility] injectable, injectable, 00:00:00 Urology quadrivalent quadrivalent influenza, influenza, 2018-04-15 Completed [facility] injectable, injectable, 00:00:00 Urology quadrivalent quadrivalent Vital Signs Vital Name Observation Time Observation Value Comments Source Height 2022-01-06 00:00:00 70 [in_i] [facility] Urology BMI (Body Mass 2022-01-06 00:00:00 30.1 kg/m2 [facility] Body Weight 2022-01-06 00:00:00 210 [lb_av] [facility] Urology Height 2021-01-13 00:00:00 70 [in_i] [facility] Urology BMI (Body Mass 2021-01-13 00:00:00 30.1 kg/m2 [place] Index) Urology Body Weight 2021-01-13 00:00:00 210 [lb_av] [facility] Urology Systolic blood 2021-09-03 21:04:00 127 mm[Hg] [facility] pressure Diastolic blood 2021-09-03 21:04:00 76 mm[Hg] [facility] pressure Heart rate 2021-09-03 21:04:00 50 /min [facility] Respiratory rate 2021-09-03 21:04:00 18 /min [facility] Oxygen saturation in 2021-09-03 21:04:00 98 /min [facility] Arterial blood by Pulse oximetry Body height 2021-09-03 20:12:00 177.8 cm [facility] Body weight 2021-09-03 20:12:00 102 kg [facility] BMI 2021-09-03 20:12:00 32.27 kg/m2 [facility] Procedures Procedure Date / Time Performing Clinician Source Performed LIPID PANEL 2022-03-02 13:04:00 Filemon Shen CV CTA CHEST W CONTRAST 2021-09-03 21:17:44 Hermelinda [facility] Rickie POC CREATININE 2021-09-03 20:27:00 Filemon Shen ESTIMATED GFR 2021-09-03 20:27:00 Filemon Shen CBC WITH PLATELET AND 2021-09-01 16:40:00 Heremlinda [facility] DIFFERENTIAL Rickie COMPREHENSIVE METABOLIC 2021-09-01 16:40:00 Hermelinda [facility] PANEL Rickie LIPID PANEL 2021-09-01 16:40:00 Filemon Shen THYROID STIMULATING 2021-09-01 16:40:00 Hermelinda [facility] HORMONE Rickie PROSTATE SPECIFIC 2021-09-01 [facility]:40[facility] TESTOSTERONE 2021-09-01 16:40:00 Filemon Shen ECG 12-LEAD 2021-08-30 15:25:52 EloychastityFilemon [facility] muriel Damian Diagnostic Colonoscopy 2013-06-05 00:00:00 [place] [facility] Urology GI- Umbilical Hernia 1959-06-05 00:00:00 [facility] Urology Plan of Care Planned Activity Planned Date Details Comments Source Future Scheduled Test 2022-08-26 Pneumococcal Vaccine: [facility] 09:20:25 Pediatrics (0 to 5 Years) and At-Risk Patients (6 to 64 Years) (1 - PCV) [code = Pneumococcal Vaccine: Pediatrics (0 to 5 Years) and At-Risk Patients (6 to 64 Years) (1 - PCV)] Future Scheduled Test 2022-08-26 Hepatitis C screening [facility] 09:20:25 (procedure) [code = [id number]] Future Scheduled Test 2022-08-26 COLONOSCOPY SCREENING [facility] 09:20:25 [code = COLONOSCOPY SCREENING] Future Scheduled Test 2022-08-26 SHINGLES VACCINES (1 [facility] 09:20:25 of 2) [code = SHINGLES VACCINES (1 of 2)] Future Scheduled Test 2022-08-26 COVID-19 VACCINE (3 - [facility] 09:20:25 Booster for Moderna series) [code = COVID-19 VACCINE (3 - Booster for Moderna series)] Future Scheduled Test 2022-08-26 INFLUENZA VACCINE [facility] 09:20:25 [code = INFLUENZA VACCINE] Future Scheduled Test 2022-06-07 Pneumococcal Vaccine: [facility] 16:32:22 Pediatrics (0 to 5 Years) and At-Risk Patients (6 to 64 Years) (1 - PCV) [code = Pneumococcal Vaccine: Pediatrics (0 to 5 Years) and At-Risk Patients (6 to 64 Years) (1 - PCV)] Future Scheduled Test 2022-06-07 Hepatitis C screening [facility] 16:32:22 (procedure) [code = [id number]] Future Scheduled Test 2022-06-07 COLONOSCOPY SCREENING [facility] 16:32:22 [code = COLONOSCOPY SCREENING] Future Scheduled Test 2022-06-07 SHINGLES VACCINES (1 [facility] 16:32:22 of 2) [code = SHINGLES VACCINES (1 of 2)] Future Scheduled Test 2022-06-07 COVID-19 VACCINE (3 - [facility] 16:32:22 Booster for Moderna series) [code = COVID-19 VACCINE (3 - Booster for Moderna series)] Future Scheduled Test 2022-06-07 INFLUENZA VACCINE [facility] 16:32:22 [code = INFLUENZA VACCINE] Future Scheduled Test 2022-03-18 HEPATITIS B VACCINES [facility] 14:16:48 (1 of 3 - 3-dose series) [code = HEPATITIS B VACCINES (1 of 3 - 3-dose series)] Future Scheduled Test 2022-03-18 Pneumococcal Vaccine: [facility] 14:16:48 Pediatrics (0 to 5 Years) and At-Risk Patients (6 to 64 Years) (1 - PCV) [code = Pneumococcal Vaccine: Pediatrics (0 to 5 Years) and At-Risk Patients (6 to 64 Years) (1 - PCV)] Future Scheduled Test 2022-03-18 Hepatitis C screening [facility] 14:16:48 (procedure) [code = [id number]] Future Scheduled Test 2022-03-18 COLONOSCOPY SCREENING [facility] 14:16:48 [code = COLONOSCOPY SCREENING] Future Scheduled Test 2022-03-18 SHINGLES VACCINES (1 [facility] 14:16:48 of 2) [code = SHINGLES VACCINES (1 of 2)] Future Scheduled Test 2022-03-18 COVID-19 VACCINE (3 - [facility] 14:16:48 Booster for Moderna series) [code = COVID-19 VACCINE (3 - Booster for Moderna series)] Future Scheduled Test 2022-03-18 INFLUENZA VACCINE [facility] 14:16:48 [code = INFLUENZA VACCINE] Future Scheduled Test 2022-02-28 HEPATITIS B VACCINES [facility] 10:08:25 (1 of 3 - 3-dose series) [code = HEPATITIS B VACCINES (1 of 3 - 3-dose series)] Future Scheduled Test 2022-02-28 Pneumococcal Vaccine: [facility] 10:08:25 Pediatrics (0 to 5 Years) and At-Risk Patients (6 to 64 Years) (1 - PCV) [code = Pneumococcal Vaccine: Pediatrics (0 to 5 Years) and At-Risk Patients (6 to 64 Years) (1 - PCV)] Future Scheduled Test 2022-02-28 Hepatitis C screening [facility] 10:08:25 (procedure) [code = [id number]] Future Scheduled Test 2022-02-28 COLONOSCOPY SCREENING [facility] 10:08:25 [code = COLONOSCOPY SCREENING] Future Scheduled Test 2022-02-28 SHINGLES VACCINES (1 [facility] 10:08:25 of 2) [code = SHINGLES VACCINES (1 of 2)] Future Scheduled Test 2022-02-28 COVID-19 VACCINE (3 - [facility] 10:08:25 Booster for Moderna series) [code = COVID-19 VACCINE (3 - Booster for Moderna series)] Future Scheduled Test 2022-02-28 INFLUENZA VACCINE [facility] 10:08:25 [code = INFLUENZA VACCINE] Diagnostic Test 2022-01-06 PSA, serum or plasma [place] [facility] Pending 00:00:00 [code = PSA, serum or Urolog y plasma] Diagnostic Test 2022-01-06 urinalysis, dipstick [place] [facility] Pending 00:00:00 [code = urinalysis, Urology dipstick] Future Appointment 2023-01-06 Myles Alas, [place] [facility] 00:00:00 [address] [facility] [address], [place] [address] Encounters Start End Encounter Admission Attending Care Care Encounter Source Date/Time Date/Time Type Type Clinicians Facility Department ID 2020-10-30 Outpatient OLIVIA NARAYAN [facility] [address] [facility] 08:03:28 [place] 2022-08-24 2022-08-24 Telephone Hermelinda, 1.2.840.1 [id number] Methodi 00:00:00 00:00:00 Filemon [id number] 3.430.2.7 Hospit a .3.078909 l .8 2022-08-19 2022-08-19 Telephone Himanshu, 1.2.840.1 [id number] Methodi 00:00:00 00:00:[id number] 3.430.2.7 Hospit a .3.043208 l .8 2022-08-18 2022-08-18 Telephone Hermelinda 1.2.840.1 [id number] Methodi 00:00:00 00:00:[address] 3.430.2.7 Hospit a .3.637574 l .8 2022-08-16 2022-08-16 Telephone Hermelinda, 1.2.840.1 [id number] Methodi 00:00:00 00:00:[address] 3.430.2.7 Hospit a .3.561477 l .8 2022-08-15 2022-08-15 Orders Himanshu, 1.2.840.1 [id number] Methodi 00:00:00 00:00:00 Only Jeana [place]50.1.[address] 3.430.2.7 Hospit a .3.880632 l .8 2022-08-10 2022-08-10 Telephone Himanshu, 1.2.840.1 [id number] Methodi 00:00:00 00:00:[address] 3.430.2.7 Hospit a .3.670765 l .8 2022-08-09 2022-08-09 Telephone Hermelinda, 1.2.840.1 [id number] Methodi 00:00:00 00:00:[address] 3.430.2.7 Hospit a .3.153747 l .8 2022-06-04 2022-06-04 Refill Silasbrigette, 1.2.840.1 [id number] Methodi 00:00:00 00:00:[address] 3.430.2.7 Hospit a .3.862240 l .8 2022-06-04 2022-06-04 Refill Silasbrigette, 1.2.840.1 [id number] Methodi 00:00:00 00:00:[address] 3.430.2.7 Hospit a .3.261499 l .8 2022-05-23 2022-05-23 Refill Hermelinda, 1.2.840.1 [id number] Methodi 00:00:00 00:00:00 Filemon Damian [id number] 3.430.2.7 Hospit a .3.110908 l .8 2022-05-23 2022-05-23 Refill Hermelinda, 1.2.840.1 [id number] Methodi 00:00:00 00:00:[address] 3.430.2.7 Hospit a .3.507872 l .8 2022-02-24 2022-02-24 Telephone Himanshu, 1.2.840.1 [id number] Methodi 00:00:00 00:00:[address] 3.430.2.7 Hospit a .3.754115 l .8 2022-02-24 2022-02-24 Telephone Hermelinda, 1.2.840.1 [id number] 2 [id number] Methodi 00:00:00 00:00:[address] 3.430.2.7 Hospit a .3.720565 l .8 2022-02-24 2022-02-24 Telephone Himanshu, 1.2.840.1 [id number] 482 [id number] Methodi 00:00:00 00:00:[address] 3.430.2.7 Hospit a .3.265755 l .8 2022-02-24 2022-02-24 Telephone Hermelinda, 1.2.840.1 [id number] 2 [id number] Methodi 00:00:00 00:00:[address] 3.430.2.7 Hospit a .3.130662 l .8 2022-02-14 2022-02-14 Refill Hermelinda, 1.2.840.1 [id number] 272 [id number] Methodi 00:00:00 00:00:[address] 3.430.2.7 Hospit a .3.471165 l .8 2022-02-14 2022-02-14 Becky Shen, 1.2.840.1 [id number] 862 [id number] Methodi 00:00:00 00:00:[address] 3.430.2.7 Hospit a .3.354681 l .8 2022-01-14 2022-01-14 Outpatient Goldfarb_[facility] [address] [place] 00:00:00 00:00:00 [facility] 2022-01-06 2022-01-06 Outpatient Goldfarb_R [facility] [address] [place] 00:00:00 00:00:00 [facility] 2022-01-06 2022-01-06 Outpatient Evette [facility] aeaf3 [id number] 00:00:00 00:00:00 Myles [id number] 2022-01-06 2022-01-06 My[place] [facility] - [id number] Tru tuttle 00:00:00 00:00:00 Evette, [place] Jeanette daniel MD: [id number] [facility] [place] [facility] - [phone], [place] [address] , Ph. 2022-01-03 2022-01-03 Outpatient Goldfarb_R [facility] [address] [place] 00:00:00 00:00:00 [facility]rology 2021-11-02 2021-11-02 Jessy Downs 1.2.840.1 [id number] Methodi 00:00:00 00:00:00 Only Jeana 54294.1.[address] 3.430.2.7 Hospit a .3.085594 l .8 2021-11-02 2021-11-02 Jessy Downs 1.2.840.1 [id number] Methodi 00:00:00 00:00:00 Only Jeana 59226.1.[address] 3.430.2.7 Hospit a .3.692171 l .8 2021-10-26 2021-10-26 Refill Himanshu, 1.2.840.1 [id number] Methodi 00:00:00 00:00:[address] 3.430.2.7 Hospit a .3.810409 l .8 2021-10-26 2021-10-26 Refill Himanshu, 1.2.840.1 [id number] [id number] Methodi 00:00:00 00:00:[address] 3.430.2.7 Hospit a .3.829234 l .8 2021-08-30 2021-09-08 [facility], 1.2.840.1 [id number] Methodi 11:20:00 00:08:22 Visit Filemon Damian 59538.1.[address] 3.430.2.7 Hospit a .3.812330 l .8 2021-08-30 2021-09-08 [facility], 1.2.840.1 [id number] 977 [id number] Methodi 11:20:00 00:08:22 Visit Filemon Damian 93835.1.[address] 3.430.2.7 Hospit a .3.768611 l .8 2021-09-03 2021-09-03 [facility], 1.2.840.1 [id number] Methodi 14:27:31 23:59:00 Encounter Filemon Damian 62108.1.[address] 3.430.2.7 Hospit a .3.281352 l .8 2021-09-03 2021-09-03 [facility], 1.2.840.1 [id number] Methodi 14:27:31 23:59:00 Encounter Filemon Damian 35439.1.[address] 3.430.2.7 Hospit a .3.336487 l .8 2021-09-03 2021-09-03 Travel 1.2.840.1 1.2.691.665 3628 [id number] Methodi 00:00:00 00:00:[address] 3.430.2.7 0.2.7.3.698 Ho spita .3.258107 084.8 l .8 2021-09-03 2021-09-03 Travel 1.2.840.1 1.2.704.020 5602 [id number] Methodi 00:00:00 00:00:[address] 3.430.2.7 0.2.7.3.698 Ho spita .3.622696 084.8 l .8 2021-08-30 2021-08-30 Travel 1.2.840.1 1.2.226.369 9874 [id number] Methodi 00:00:00 00:00:[address] 3.430.2.7 0.2.7.3.698 Ho spita .3.686635 084.8 l .8 2021-08-30 2021-08-30 Travel 1.2.840.1 1.2.055.661 5038 [id number] Methodi 00:00:00 00:00:[address] 3.430.2.7 0.2.7.3.698 Ho spita .3.668096 084.8 l .8 2021-08-26 2021-08-26 Travel 1.2.840.1 1.2.010.373 7869 [id number] Methodi 00:00:00 00:00:[address] 3.430.2.7 0.2.7.3.698 Ho spita .3.356500 084.8 l .8 2021-08-26 2021-08-26 Travel 1.2.840.1 1.2.966.761 3519 [id number] Methodi 00:00:00 00:00:[address] 3.430.2.7 0.2.7.3.698 Ho spita .3.240413 084.8 l .8 2021-08-16 2021-08-16 Telephone Jonathan 1.2.840.1 [id number] Methodi 00:00:00 00:00:[address] 3.430.2.7 Hospit a .3.618949 l .8 2021-05-17 2021-05-17 Becky Shen, 1.2.840.1 [id number] Methodi 00:00:00 00:00:[address] 3.430.2.7 Hospit a .3.228180 l .8 2021-03-21 2021-03-21 Outpatient Goldfarb_R [facility] [address] [place] 02:39:00 02:39:00 26249 [facility] 2021-01-25 2021-01-25 Outpatient Goldfarb_R [facility] [address] [place] 12:31:00 12:31:00 04190 [facility] 2021-01-13 2021-01-13 Outpatient Goldfarb_R [facility] [address] [place] 10:41:00 10:41:00 [facility] 2021-01-13 2021-01-13 Outpatient Evette [facility] [id number] 00:00:00 00:00:00 Myles [id number] 2021-01-13 2021-01-13 Myles [facility] [place] - [id number] Tru tuttle 00:00:00 00:00:00 Rodríguez Alas MD: 6560 [facility] [place] [facility] [address], [place] [address] , Ph. 2021-01-07 2021-01-07 Outpatient Goldfarb_R [facility] [address] [place] 11:26:00 11:26:00 69992 [facility] 2020-11-24 2020-11-24 Outpatient OLIVIA NARAYAN JOEY 7517 OLIVIA 10:50:00 14:10:00 HORTENSIA 2020-09-29 2020-09-29 Outpatient Goldfarb_R U U [address] [place] 12:12:00 12:12:00 76913 [facility] 2020-08-26 2020-08-26 Outpatient HERMELINDA, [facility] 2100 [id number] [place] 00:00:00 00:00:00 FILEMON [address] 2020-07-01 2020-07-01 Outpatient HERMELINDA, [facility] 2100 [id number] [place] 00:00:00 00:00:00 FILEMON [address] 2020-06-17 2020-06-17 Outpatient ELOYIAN, [facility] 2100 [id number] [place] 00:00:00 00:00:00 FILEMON [address] 2020-06-14 2020-06-14 Emergency E MOHAMED, [facility]BL MHBL 7509 [facility]BL 10:03:00 15:40:00 ABDIWAHAB 2020-03-02 2020-03-02 Outpatient HERMELINDA, [facility] 2100 [id number] [place] 00:00:00 00:00:00 FILEMON [address] 2020-01-28 2020-01-28 [facility] 2100 [id number] [place] 00:00:00 00:00:00 FILEMON [address] 2020-01-28 2020-01-28 [facility] 2100 [id number] [place] 00:00:00 00:00:00 FILEMON [address] 2020-01-28 2020-01-28 [facility] 2100 [id number] [place] 00:00:00 00:00:00 FILEMON [address] 2020-01-20 2020-01-20 [facility] 2100 [id number] [place] 00:00:00 00:00:[address] FILEMON [address] Results Test Description Test Time Test Comments Results Result Comments Source Lipid panel 2022-03-03 02:54:00 Test Item Value Reference Range Interpretation Comme nts Cholesterol, total (test 87 mg/dL <=200 code = 2093-3) HDL cholesterol (test 28 mg/dL See_Comment L [Auto mated message] code = 2085-9) The system [facility] generated this result transmitted ref erence range: > OR = 4 0. The reference range was not used to int erpret this result as normal/abnormal . Triglycerides (test code 74 mg/dL <=150 = 2571-8) LDL cholesterol 44 mg/dL (calc) Reference ra nge: <100 calculated (test code = Rosa Maria rable range <100 34931-3) mg/dL for prima ry prevention; <70 mg/dL for patients wi th CHD or diabetic pat ients with > or = 2 C HD risk factors. LDL-C is now calculated bernard bueno the Honey calculation, wh ich is a validated nov el method leah bueno better accuracy than the Friedewald equation in the estimation of L DL-C. Melchor SS et al . CANDY. 2013;310(19): 9626-8184 (http://educati on.Ques tDiagnostics.co m/faq/F AQ164) Cholesterol/HDL ratio 3.1 See_Comment [Auto mated message] (test code = 9830-1) The sys tem which generated this result transmitted ref erence range: <5.0 (ca lc). The reference r shena was not used to interpret this result as normal/abnor mal. Non-HDL cholesterol (test 59 See_Comment Fo r patients with code = 97891-5) diabetes plu s 1 major ASCVD risk fact or, treating to a non-HDL-C goal of <100 mg/dL (LDL-C of <70 mg/dL) is consi dered a therapeutic opt ion. [Automated mess age] The system whic h generated this result transmitted ref erence range: <130 mg/ dL (calc). The ref erence range was not u sed to interpret this result as normal/abnor mal. AKBAR (test code = AKBAR) FASTING:YES FASTING: YES RAC (test code = RAC) Performing Organization Information: Site ID: [facility]: [facility] Address: [address] [place] [phone] Director: Sunil Escalona Lab Interpretation (test Abnormal code = 70920-6) [facility] [id number] 02:54:00 Test Item Value Reference Range Interpretation Comments Cholesterol, total 87 mg/dL See_Comment [Automat ed (test code = 2093-3) message ] The system which generated this result transmitted reference range : <=200. The reference range was not used to interpret this result as normal/abnormal . HDL cholesterol 28 mg/dL See_Comment L [Automated (test code = 2085-9) message ] The system which generated this result transmitted reference range : > OR = 40. The reference range was not used to interpret this result as normal/abnormal . Triglycerides (test 74 mg/dL See_Comment [Automa armida code = 2571-8) message] The system which generated this result transmitted reference range : <=150. The reference range was not used to interpret this result as normal/abnormal . LDL cholesterol mg/dL (calc) Reference ra nge: calculated (test <100 Desira ble code = 76907-1) range <100 m g/dL for primary prevention; <70 mg/dL for patients with C HD or diabetic patients with > or = 2 CHD risk factors. LDL-C is now calculated using the Melchor-Marianne calculation, which is a validated novel method providin g better accuracy than the Friedewald equation in the estimation of LDL-C. Melchor S S et al. CANDY. 2013;310(19): 2839-3800 (http://educati on .Xyleme .com/faq/UDK529 ) Cholesterol/HDL See_Comment [Automated ratio (test code = message] The 9830-1) system which generated this result transmitted reference range : <5.0 (calc). Th e reference range was not used to interpret this result as normal/abnormal . Non-HDL cholesterol See_Comment For skip ents with (test code = diabetes plus 1 01369-7) major ASCVD ris k factor, treatin g to a non-HDL-C goal of <100 mg/dL (LDL-C of <70 mg/dL) is considered a therapeutic option. [Automated message] The system which generated this result transmitted reference range : <130 mg/dL (calc). The reference range was not used to interpret this result as normal/abnormal . AKBAR (test code = FASTING:YES AKBAR) FASTING: YES RAC (test code = Performing RAC) Organization Information: Site ID: RGA Name: I AM [facility] Lab Address: [address] [place] [phone] Director: Sunil Escalona Lab Interpretation Abnormal (test code = 76983-3) [facility] [id number] 02:54:00 Test Item Value Reference Range Interpretation Comments Cholesterol, total 87 mg/dL <=200 (test code = 2093-3) HDL cholesterol 28 mg/dL See_Comment L [Automated (test code = 2084-9) message ] The system which generated this result transmitted reference range : > OR = 40. The reference range was not used to interpret this result as normal/abnormal . Triglycerides (test 74 mg/dL <=150 code = 2571-8) LDL cholesterol 44 mg/dL (calc) Reference ra nge: calculated (test <100 Desira ble code = 72565-6) range <100 m g/dL for primary prevention; <70 mg/dL for patients with C HD or diabetic patients with > or = 2 CHD risk factors. LDL-C is now calculated using the Melchor-Marianne calculation, which is a validated novel method providin g better accuracy than the Friedewald equation in the estimation of LDL-C. Melchor S S et al. CANDY. 2013;310(19): 5559-6462 (http://educati on .mNectarDiagnostCoreObjects Software .com/faq/PKQ798 ) Cholesterol/HDL 3.1 See_Comment [Automated ratio (test code = message] The 9830-1) system which generated this result transmitted reference range : <5.0 (calc). Th e reference range was not used to interpret this result as normal/abnormal . Non-HDL cholesterol 59 See_Comment For skip ents with (test code = diabetes plus 1 17971-0) major ASCVD ris k factor, treatin g to a non-HDL-C goal of <100 mg/dL (LDL-C of <70 mg/dL) is considered a therapeutic option. [Automated message] The system which generated this result transmitted reference range : <130 mg/dL (calc). The reference range was not used to interpret this result as normal/abnormal . AKBAR (test code = FASTING:YES AKBAR) FASTING: YES RAC (test code = Performing RAC) Organization Information: Site ID: RGA Name: I AM [facility] Lab Address: [address] [place] [phone] Director: Sunil L Pola Lab Interpretation Abnormal (test code = 07629-5) [facility] [id number] 20:29:00 Test Item Value Reference Range Interpretation Comments POC creatinine (test 1.0 mg/dl 0.7-1.2 [facility]ato r [facility] code = 32702-5) Rosi ce ID: [id number] [facility] [id number] 20:29:00 Test Item Value Reference Range Interpretation Comments Estimated GFR (test mL/min/1.73 m2 Caterg ory Units code = 18725-7) Interpretati onG1 >=90 Normal or highG 2 60-89 Mildly decrease dG3a 45-59 Mildly to moder ately jkefpkhysN3n 30 -44 Moderately to s everely decreasedG4 15- 29 Severely decreasedG5 <15 Kidney failureThe eGFR was calculated usin g the Chronic Kidney Disease Epidemiology Co llaboration (CKD-EPI) equat ion. Interpretation is based on recommendations of the National Kidney Foundation-Kidn ey Disease Outcomes Qualit y Initiative (NKF-KDOQI) pub lished in 2013. [facility] [id number] 20:29:00 Test Item Value Reference Range Interpretation Comments POC creatinine (test 1.0 mg/dl 0.7-1.2 Operato r Name: [facility] code = 68556-8) Rosi ce ID: [id number] [facility] [id number] 20:29:00 Test Item Value Reference Range Interpretation Comments Estimated GFR (test 80 mL/min/1.73 m2 Caterg ory Units code = 24043-6) Interpretati onG1 >=90 Normal or highG 2 60-89 Mildly decrease dG3a 45-59 Mildly to moder ately ngzbxiafiR6n 30 -44 Moderately to s everely decreasedG4 15 -29 Severely decreasedG5 <15 Kidney failureThe eGFR was calculated usin g the Chronic Kidney Disease Epidemiology Co llaboration (CKD-EPI) equat ion. Interpretation is based on recommendations of the National Kidney Foundation-Kidn ey Disease Outcomes Qualit y Initiative (NKF-KDOQI) pub lished in 2014. [facility] [id number] 20:29:00 Test Item Value Reference Range Interpretation Comments POC creatinine (test 1.0 mg/dl 0.7-1.2 [facility]ato r [facility] code = 86410-4) Rosi ce ID: [id number] [facility] [id number] 20:29:00 Test Item Value Reference Range Interpretation Comments Estimated GFR (test mL/min/1.73 m2 Caterg ory Units code = 78235-8) Interpretati onG1 >=90 Normal or highG 2 60-89 Mildly decrease dG3a 45-59 Mildly to moder ately rwbndrjaaX2x 30 -44 Moderately to s everely decreasedG4 15- 29 Severely decreasedG5 <15 Kidney failureThe eGFR was calculated usin g the Chronic Kidney Disease Epidemiology Co llaboration (CKD-EPI) equat ion. Interpretation is based on recommendations of the National Kidney Foundation-Kidn ey Disease Outcomes Qualit y Initiative (NKF-KDOQI) pub lished in 2014. [facility] [id number] 20:29:00 Test Item Value Reference Range Interpretation Comments POC creatinine (test 1.0 mg/dl 0.7-1.2 Operato r Name: [facility] code = 76894-8) Rosi ce ID: [id number] [facility] [id number] 20:29:00 Test Item Value Reference Range Interpretation Comments Estimated GFR (test 80 mL/min/1.73 m2 Caterg ory Units code = 14206-1) Interpretati onG1 >=90 Normal or highG 2 60-89 Mildly decrease dG3a 45-59 Mildly to moder ately trldskhkmG1z 30 -44 Moderately to s everely decreasedG4 15- 29 Severely decreasedG5 <15 Kidney failureThe eGFR was calculated usin g the Chronic Kidney Disease Epidemiology Co llaboration (CKD-EPI) equat ion. Interpretation is based on recommendations of the National Kidney Foundation-Kidn ey Disease Outcomes Qualit y Initiative (NKF-KDOQI) pub lished in 2014. [facility] with platelet and [id number] 06:48:00 Test Item Value Reference Range Interpretation Comments WBC (test code = See_Comment [Automated 5735-2) message] The system which generated this result transmitted reference range : 3.8 - 10.8 Thousand/uL. Th e reference range was not used to interpret this result as normal/abnormal . RBC (test code = See_Comment [Automated 789-8) message] The system which generated this result transmitted reference range : 4.20 - 5.80 Million/uL. The reference range was not used to interpret this result as normal/abnormal . HGB (test code = 14.8 g/dL 13.2-17.1 718-7) HCT (test code = 45.2 % 38.5-50.0 4544-3) MCV (test code = 87.4 fL 80.0-100.0 787-2) MCH (test code = 28.6 pg 27.0-33.0 785-6) MCHC (test code = 32.7 g/dL 32.0-36.0 786-4) RDW (test code = 13.0 % 11.0-15.0 788-0) Platelet count See_Comment [Automated (test code = message] The 777-3) system which generated this result transmitted reference range : 140 - 400 Thousand/uL. Th e reference range was not used to interpret this result as normal/abnormal . MPV (test code = 9.4 fL 7.5-12.5 776-5) Neutrophils, See_Comment [Automated absolute (test message] The code = 751-8) system which generated this result transmitted reference range : 1,500 - 7,800 cells/uL. The reference range was not used to interpret this result as normal/abnormal . Lymphocytes, See_Comment [Automated absolute (test message] The code = 731-0) system which generated this result transmitted reference range : 850 - 3,900 cells/uL. The reference range was not used to interpret this result as normal/abnormal . Monocytes, See_Comment [Automated absolute (test message] The code = 742-7) system which generated this result transmitted reference range : 200 - 950 cells/uL. The reference range was not used to interpret this result as normal/abnormal . Eosinophils, See_Comment [Automated absolute (test message] The code = 711-2) system which generated this result transmitted reference range : 15 - 500 cells/uL. The reference range was not used to interpret this result as normal/abnormal . Basophils, See_Comment [Automated absolute (test message] The code = 704-7) system which generated this result transmitted reference range : 0 - 200 cells/u L. The reference range was not used to interpr et this result as normal/abnormal . Neutrophils (test 49 % code = 770-8) Lymphocytes (test 40.0 % code = 736-9) Monocytes (test 6.8 % code = 5905-5) Eosinophils (test 3.3 % code = 713-8) Basophils + RC 0.9 % (test code = 706-2) AKBAR (test code = FASTING:YES AKBAR) FASTING: YES RAC (test code = Performing RAC) Organization Information: Site ID: HEATHER [facility] Address: [address] [place] [phone] Director: Sunil Escalona [facility]pre[facility] [id number] 06:48:00 Test Item Value Reference Interpretation Comments Range Glucose (test 91 mg/dL 65-99 Fasting refer ence code = 2345-7) interval BUN (test code = 18 mg/dL 7-25 3094-0) Creatinine (test 1.10 mg/dL 0.70-1.25 For patient s >49 code = 2160-0) years of age, the reference limit for Creatinine is approximately 1 3% higher for peopleidentifie d as -[place] n. EGFR Non-Afr. 71 See_Comment [Automated me ssage] Canadian (test The system ich code = 2775) generated this result transmitted ref erence range: > OR = 6 0 mL/min/1.73m2. The reference range was not used to int erpret this result as normal/abnormal . EGFR 82 See_Comment [Automated mes talya] Canadian (test The system ich code = 2774) generated this result transmitted ref erence range: > OR = 6 0 mL/min/1.73m2. The reference range was not used to int erpret this result as normal/abnormal . BUN/creatinine NOT APPLICABLE See_Comment [Automated message] ratio (test code The system which = 3097-3) generated this result transmitted ref erence range: 6 - 22 ( calc). The reference r shena was not used to interpret this result as normal/abnor mal. Sodium (test code 138 mmol/L 135-146 = 2951-2) Potassium (test 4.3 mmol/L 3.5-5.3 code = 2823-3) Chloride (test 104 mmol/L 98-110 code = 2075-0) CO2 (test code = 26 mmol/L 20-32 2027-9) Calcium (test 9.5 mg/dL 8.6-10.3 code = 19641-6) Protein (test 7.1 g/dL 6.1-8.1 code = 2885-2) Albumin, S (test 4.9 g/dL 3.6-5.1 code = 1751-7) Globulin, total 2.2 See_Comment [Automated message] (test code = [place] [address]-0) generated this result transmitted ref erence range: 1.9 - 3. 7 g/dL (calc). The ref erence range was not u sed to interpret this result as normal/abnor mal. Albumin/globulin 2.2 See_Comment [Automated message] ratio (test code The system which = 1759-0) generated this result transmitted ref erence range: 1.0 - 2. 5 (calc). The ref erence range was not u sed to interpret this result as normal/abnor mal. Total bilirubin 0.6 mg/dL 0.2-1.2 (test code = 1974-2) Alkaline 41 U/L 35-144 phosphatase (test code = 6768-6) AST (test code = 20 U/L 10-35 1920-8) ALT (test code = 37 U/L 9-46 1742-6) AKBAR (test code = FASTING:YES AKBAR) FASTING: YES RAC (test code = Performing RAC) Organization Information: Site ID: RGA Name: I AM [facility] Lab Address: [address] [place] [phone] Director: Sunil Escalona [facility] specific [id number] 06:48:00 Test Item Value Reference Range Interpretation Comments PSA (test 0.30 ng/mL See_Comment The total PSA v alue code = from this assay system 2857-1) is standardized against the WHO standar d. The test result viry l be approximately 2 0% lower when compared t o the equimolar-stand ardized total PSA (Aj Etopus Nicole). Roosevelt rison of serial PSA resu lts should be inter preted with this fact in mind. This test was p erformed using the Remark ns chemiluminescen t method. Values obtained from different assay methods cannot be usedinterchange ably. PSA levels, reg ardless ofvalue, should not be interpreted as absoluteevidenc e of the presence or abs ence of disease. [Autom ated message] The sy stem which generated this result transmit armida reference range : < OR = 4.00. The refer ence range was not u sed to interpret this result as normal/abnor mal. AKBAR (test FASTING:YES code = AKBAR) FASTING: YES RAC (test Performing code = RAC) Organization Information: Site ID: RGA [facility] Address: [address] [place] [phone] Director: Sunil SpencerAcuteCare Health SystemUtiztkgkVgsijgjefsom5026-04-36 06:48:00 Test Item Value Reference Interpretation Comments Range Testoster 265 ng/dL 250-1100 Men with clinic ally one, significant hyp ogonadal total, symptoms and te stosterone lc/ms/ms valuesrepeatedl y in the range (test of the 200-300 ng/dL or less, code = may benefit fro mtestosterone 2986-8) treatment after adequate risk and benefits co unseling. For additional info rmation, please refer tohttps://educa tion.Bloxr.[employer]/faq/ TotalTestostero neLCMSMS (This link is being provided for informational/e ducational purposes only.) (Note) This test was develo ped and its analytical performancechar acteristics have been deter mined by [employer]. It h as notbeen cleared or appr pb by the FDA. This assay has been validatedpursua nt to the CLIA regulations and is used for clinical purpos es. MDFmed [id number] [address],[address] [id number] 00Jimbo Kumar MD AKBAR (test FASTING:YES code = FASTING: YES AKBAR) RAC (test Performing code = Organization RAC) Information: Site ID: [id number] Name: [facility] on Address: [address] [place] [address], [address] [place] [address] Director: Jimbo Leonard [facility] ChildrenThyroid stimulating [id number] 06:48:00 Test Item Value Reference Range Interpretation Comments TSH (test 3.04 See_Comment [Automated mes talya] code = The system ic h 3016-3) generated this result transmit armida reference range : 0.40 - 4.50 mIU /L. The reference r shena was not used to interpret this result as normal/abnormal . AKBAR (test FASTING:YES FASTING: code = AKBAR) YES RAC (test Performing code = RAC) Organization Information: Site ID: HEATHER [facility] Address: [address] [place] [phone] Director: Sunil Escalona [facility] with platelet and [id number] 06:48:00 Test Item Value Reference Range Interpretation Comments WBC (test code = 5.7 See_Comment [Automated 6690-2) message] The system which generated this result transmitted reference range : 3.8 - 10.8 Thousand/uL. Th e reference range was not used to interpret this result as normal/abnormal . RBC (test code = 5.17 See_Comment [Automated 789-8) message] The system which generated this result transmitted reference range : 4.20 - 5.80 Million/uL. The reference range was not used to interpret this result as normal/abnormal . HGB (test code = 14.8 g/dL 13.2-17.1 718-7) HCT (test code = 45.2 % 38.5-50.0 4544-3) MCV (test code = 87.4 fL 80.0-100.0 787-2) MCH (test code = 28.6 pg 27.0-33.0 785-6) MCHC (test code = 32.7 g/dL 32.0-36.0 786-4) RDW (test code = 13.0 % 11.0-15.0 788-0) Platelet count 227 See_Comment [Automated (test code = message] The 777-3) system which generated this result transmitted reference range : 140 - 400 Thousand/uL. Th e reference range was not used to interpret this result as normal/abnormal . MPV (test code = 9.4 fL 7.5-12.5 776-5) Neutrophils, 2793 See_Comment [Automated absolute (test message] The code = 751-8) system which generated this result transmitted reference range : 1,500 - 7,800 cells/uL. The reference range was not used to interpret this result as normal/abnormal . Lymphocytes, 2280 See_Comment [Automated absolute (test message] The code = 731-0) system which generated this result transmitted reference range : 850 - 3,900 cells/uL. The reference range was not used to interpret this result as normal/abnormal . Monocytes, 388 See_Comment [Automated absolute (test message] The code = 742-7) system which generated this result transmitted reference range : 200 - 950 cells/uL. The reference range was not used to interpret this result as normal/abnormal . Eosinophils, 188 See_Comment [Automated absolute (test message] The code = 711-2) system which generated this result transmitted reference range : 15 - 500 cells/uL. The reference range was not used to interpret this result as normal/abnormal . Basophils, 51 See_Comment [Automated absolute (test message] The code = 704-7) system which generated this result transmitted reference range : 0 - 200 cells/u L. The reference range was not used to interpr et this result as normal/abnormal . Neutrophils (test 49 % code = 770-8) Lymphocytes (test 40.0 % code = 736-9) Monocytes (test 6.8 % code = 5905-5) Eosinophils (test 3.3 % code = 713-8) Basophils + RC 0.9 % (test code = 706-2) AKBAR (test code = FASTING:YES AKBAR) FASTING: YES RAC (test code = Performing RAC) Organization Information: Site ID: RGA [facility] Address: [address] [place] [phone] Director: Sunil Escalona [facility] Campusprehenve metabolic [id number] 06:48:00 Test Item Value Reference Interpretation Comments Range Glucose (test 91 mg/dL 65-99 Fasting refer ence code = 2345-7) interval BUN (test code = 18 mg/dL 7-25 3094-0) Creatinine (test 1.10 mg/dL 0.7-1.25 For patient s >49 code = 2160-0) years of age, the reference limit for Creatinine is approximately 1 3% higher for peopleidentifie d as -Carol n. EGFR Non-Afr. See_Comment [Automated me ssage] Canadian (test The system [facility] code = 2775) generated this result transmitted ref erence range: > OR = 6 0 mL/min/1.73m2. The reference range was not used to int erpret this result as normal/abnormal . EGFR See_Comment [Automated mes talya] Canadian (test The system [facility] code = 2774) generated this result transmitted ref erence range: > OR = 6 0 mL/min/1.73m2. The reference range was not used to int erpret this result as normal/abnormal . BUN/creatinine NOT APPLICABLE See_Comment [Automated message] ratio (test code The system which = 3097-3) generated this result transmitted ref erence range: 6 - 22 ( calc). The reference r shena was not used to interpret this result as normal/abnor mal. Sodium (test code 138 mmol/L 135-146 = 2951-2) Potassium (test 4.3 mmol/L 3.5-5.3 code = 2823-3) Chloride (test 104 mmol/L 98-110 code = 2075-0) CO2 (test code = 26 mmol/L 20-32 2027-9) Calcium (test 9.5 mg/dL 8.6-10.3 code = 41114-6) Protein (test 7.1 g/dL 6.1-8.1 code = 2885-2) Albumin, S (test 4.9 g/dL 3.6-5.1 code = 1751-7) Globulin, total See_Comment [Automated message] (test code = The system [facility] h [address]-5) generated this result transmitted ref erence range: 1.9 - 3. 7 g/dL (calc). The ref erence range was not u sed to interpret this result as normal/abnor mal. Albumin/globulin See_Comment [Automated message] ratio (test code The system which = 1759-0) generated this result transmitted ref erence range: 1.0 - 2. 5 (calc). The ref erence range was not u sed to interpret this result as normal/abnor mal. Total bilirubin 0.6 mg/dL 0.2-1.2 (test code = 1974-2) Alkaline 41 U/L 35-144 phosphatase (test code = 6768-6) AST (test code = 20 U/L 10-35 1920-8) ALT (test code = 37 U/L 9-46 1742-6) AKBAR (test code = FASTING:YES AKBAR) FASTING: YES RAC (test code = Performing RAC) Organization Information: Site ID: RGA Name: I AM [facility] Lab Address: [address] [place] [phone] Director: Sunil Escalona [facility] CenterLipid [id number] 06:48:00 Test Item Value Reference Range Interpretation Comments Cholesterol, total 117 mg/dL See_Comment [Automat ed (test code = 2093-3) message ] The system which generated this result transmitted reference range : <=200. The reference range was not used to interpret this result as normal/abnormal . HDL cholesterol 30 mg/dL See_Comment L [Automated (test code = 2085-9) message ] The system which generated this result transmitted reference range : > OR = 40. The reference range was not used to interpret this result as normal/abnormal . Triglycerides (test 109 mg/dL See_Comment [Automa armida code = 2571-8) message] The system which generated this result transmitted reference range : <=150. The reference range was not used to interpret this result as normal/abnormal . LDL cholesterol mg/dL (calc) Reference ra nge: calculated (test <100 Desira ble code = 79301-6) range <100 m g/dL for primary prevention; <70 mg/dL for patients with C HD or diabetic patients with > or = 2 CHD risk factors. LDL-C is now calculated using the Melchor-Marianne calculation, which is a validated novel method providin g better accuracy than the Friedewald equation in the estimation of LDL-C. Melchor S S et al. CANDY. 2013;310(19): 4704-8289 (http://educati on .mNectarDiagnosti BL[employer] .com/faq/LRH877 ) Cholesterol/HDL See_Comment [Automated ratio (test code = message] The 9830-1) system which generated this result transmitted reference range : <5.0 (calc). Th e reference range was not used to interpret this result as normal/abnormal . Non-HDL cholesterol See_Comment For skip ents with (test code = diabetes plus 1 39215-8) major ASCVD ris k factor, treatin g to a non-HDL-C goal of <100 mg/dL (LDL-C of <70 mg/dL) is considered a therapeutic option. [Automated message] The system which generated this result transmitted reference range : <130 mg/dL (calc). The reference range was not used to interpret this result as normal/abnormal . AKBAR (test code = FASTING:YES AKBAR) FASTING: YES RAC (test code = Performing RAC) Organization Information: Site ID: RGA Name: I AM [facility] Lab Address: [address] [place] [phone] Director: Sunil Escalona Lab Interpretation Abnormal (test code = 70231-2) [facility] specific [id number] 06:48:00 Test Item Value Reference Range Interpretation Comments PSA (test 0.30 ng/mL See_Comment The total PSA v alue code = from this assay system 2857-1) is standardized against the WHO standar d. The test result viry l be approximately 2 0% lower when compared t o the equimolar-stand ardized total PSA ([employer]). Roosevelt rison of serial PSA resu lts should be inter preted with this fact in mind. This test was p erformed using the Remark ns chemiluminescen t method. Values obtained from different assay methods cannot be usedinterchange ably. PSA levels, reg ardless ofvalue, should not be interpreted as absoluteevidenc e of the presence or abs ence of disease. [Autom ated message] The sy stem which generated this result transmit armida reference range : < OR = 4.00. The refer ence range was not u sed to interpret this result as normal/abnor mal. AKBAR (test FASTING:YES code = AKBAR) FASTING: YES RAC (test Performing code = RAC) Organization Information: Site ID: RGA [facility]: [facility] Address: [address] [place] [phone] Director: Sunil Escalona [facility] CenterXhsokaneIyqjxfoemyxo5695-19-28 06:48:00 Test Item Value Reference Interpretation Comments Range Testoster 265 ng/dL 250-1100 Men with clinic ally one, significant hyp ogonadal total, symptoms and te stosterone lc/ms/ms valuesrepeatedl y in the range (test of the 200-300 ng/dL or less, code = may benefit fro mtestosterone 2986-8) treatment after adequate risk and benefits co unseling. For additional info rmation, please refer tohttps://educa evonne.Blox[employer]/faq/ TotalTestostero neLCMSMS (This link is being provided for informational/e ducational purposes only.) (Note) This test was develo ped and its analytical performancechar acteristics have been deter mined by [employer]. It h as notbeen cleared or appr pb by the FDA. This assay has been validatedpursua nt to the CLIA regulations and is used for clinical purpos es. MDed [id number] [place] [address],[address] [place] [address] [phone] 00Mickrista Kumar MD AKBAR (test FASTING:YES code = FASTING: YES AKBAR) RAC (test Performing code = Organization RAC) Information: Site ID: [id number] [facility] Address: [address] [place] [address], [address] [place] [phone] Director: Jimbo Kumar MD [facility] CenterThyroid stimulating [id number] 06:48:00 Test Item Value Reference Range Interpretation Comments TSH (test See_Comment [Automated mes talya] code = The system [facility] 3016-3) generated this result transmit armida reference range : 0.40 - 4.50 mIU /L. The reference r shena was not used to interpret this result as normal/abnormal . AKBAR (test FASTING:YES FASTING: code = AKBAR) YES RAC (test Performing code = RAC) Organization Information: Site ID: RGA [facility]: [facility] Address: [address] [place] [phone] Director: Sunil Escalona [facility] with platelet and ccucboocpbru7644-61-94 06:48:00 Test Item Value Reference Range Interpretation Comments WBC (test code = See_Comment [Automated 6690-2) message] The system which generated this result transmitted reference range : 3.8 - 10.8 Thousand/uL. Th e reference range was not used to interpret this result as normal/abnormal . RBC (test code = See_Comment [Automated 789-8) message] The system which generated this result transmitted reference range : 4.20 - 5.80 Million/uL. The reference range was not used to interpret this result as normal/abnormal . HGB (test code = 14.8 g/dL 13.2-17.1 718-7) HCT (test code = 45.2 % 38.5-50 4544-3) MCV (test code = 87.4 fL 80-100 787-2) MCH (test code = 28.6 pg 27-33 785-6) MCHC (test code = 32.7 g/dL 32-36 786-4) RDW (test code = 13.0 % 11-15 788-0) Platelet count See_Comment [Automated (test code = message] The 777-3) system which generated this result transmitted reference range : 140 - 400 Thousand/uL. Th e reference range was not used to interpret this result as normal/abnormal . MPV (test code = 9.4 fL 7.5-12.5 776-5) Neutrophils, See_Comment [Automated absolute (test message] The code = 751-8) system which generated this result transmitted reference range : 1,500 - 7,800 cells/uL. The reference range was not used to interpret this result as normal/abnormal . Lymphocytes, See_Comment [Automated absolute (test message] The code = 731-0) system which generated this result transmitted reference range : 850 - 3,900 cells/uL. The reference range was not used to interpret this result as normal/abnormal . Monocytes, See_Comment [Automated absolute (test message] The code = 742-7) system which generated this result transmitted reference range : 200 - 950 cells/uL. The reference range was not used to interpret this result as normal/abnormal . Eosinophils, See_Comment [Automated absolute (test message] The code = 711-2) system which generated this result transmitted reference range : 15 - 500 cells/uL. The reference range was not used to interpret this result as normal/abnormal . Basophils, See_Comment [Automated absolute (test message] The code = 704-7) system which generated this result transmitted reference range : 0 - 200 cells/u L. The reference range was not used to interpr et this result as normal/abnormal . Neutrophils (test 49 % code = 770-8) Lymphocytes (test 40.0 % code = 736-9) Monocytes (test 6.8 % code = 5905-5) Eosinophils (test 3.3 % code = 713-8) Basophils + RC 0.9 % (test code = 706-2) AKBAR (test code = FASTING:YES AKBAR) FASTING: YES RAC (test code = Performing RAC) Organization Information: Site ID: RGA [facility] Address: [address] [place] [phone] Director: Sunil Escalona [facility] Campusprehenve metabolic [id number] 06:48:00 Test Item Value Reference Interpretation Comments Range Glucose (test 91 mg/dL 65-99 Fasting refer ence code = 2345-7) interval BUN (test code = 18 mg/dL 7-25 3094-0) Creatinine (test 1.10 mg/dL 0.70-1.25 For patient s >49 code = 2160-0) years of age, the reference limit for Creatinine is approximately 1 3% higher for peopleidentifie d as -Carol n. EGFR Non-Afr. See_Comment [Automated me ssage] Canadian (test The system ich code = 2775) generated this result transmitted ref erence range: > OR = 6 0 mL/min/1.73m2. The reference range was not used to int erpret this result as normal/abnormal . EGFR See_Comment [Automated mes talya] Canadian (test The system ich code = 2774) generated this result transmitted ref erence range: > OR = 6 0 mL/min/1.73m2. The reference range was not used to int erpret this result as normal/abnormal . BUN/creatinine NOT APPLICABLE See_Comment [Automated message] ratio (test code The system which = 3097-3) generated this result transmitted ref erence range: 6 - 22 ( calc). The reference r shena was not used to interpret this result as normal/abnor mal. Sodium (test code 138 mmol/L 135-146 = 2951-2) Potassium (test 4.3 mmol/L 3.5-5.3 code = 2823-3) Chloride (test 104 mmol/L 98-110 code = 2075-0) CO2 (test code = 26 mmol/L 20-32 2027-9) Calcium (test 9.5 mg/dL 8.6-10.3 code = 95397-9) Protein (test 7.1 g/dL 6.1-8.1 code = 2885-2) Albumin, S (test 4.9 g/dL 3.6-5.1 code = 1751-7) Globulin, total See_Comment [Automated message] (test code = [place] [address]-1) generated this result transmitted ref erence range: 1.9 - 3. 7 g/dL (calc). The ref erence range was not u sed to interpret this result as normal/abnor mal. Albumin/globulin See_Comment [Automated message] ratio (test code The system which = 1759-0) generated this result transmitted ref erence range: 1.0 - 2. 5 (calc). The ref erence range was not u sed to interpret this result as normal/abnor mal. Total bilirubin 0.6 mg/dL 0.2-1.2 (test code = 1974-2) Alkaline 41 U/L 35-144 phosphatase (test code = 6768-6) AST (test code = 20 U/L 10-35 1920-8) ALT (test code = 37 U/L 9-46 1742-6) AKBAR (test code = FASTING:YES AKBAR) FASTING: YES RAC (test code = Performing RAC) Organization Information: Site ID: RGA Name: I AM ATFranc[facility] Lab Address: [address] [place] [address] Director: Sunil Escalona [facility] specific [id number] 06:48:00 Test Item Value Reference Range Interpretation Comments PSA (test 0.30 ng/mL See_Comment The total PSA v alue code = from this assay system 2857-1) is standardized against the WHO standar d. The test result viry l be approximately 2 0% lower when compared t o the equimolar-stand ardized total PSA ([employer]elli[employer] Nicole). Roosevelt rison of serial PSA resu lts should be inter preted with this fact in mind. This test was p erformed using the Hidden[employer] ns chemiluminescen t method. Values obtained from different assay methods cannot be usedinterchange ably. PSA levels, reg ardless ofvalue, should not be interpreted as absoluteevidenc e of the presence or abs ence of disease. [Autom ated message] The sy stem which generated this result transmit armida reference range : < OR = 4.00. The refer ence range was not u sed to interpret this result as normal/abnor mal. AKBAR (test FASTING:YES code = AKBAR) FASTING: YES RAC (test Performing code = RAC) Organization Information: Site ID: RGA [facility] Address: [address] [place] [phone] Director: Sunil Leonard EbysbtmhLhzvtojkujot5730-16-67 06:48:00 Test Item Value Reference Interpretation Comments Range Testoster 265 ng/dL 250-1100 Men with clinic ally one, significant hyp ogonadal total, symptoms and te stosterone lc/ms/ms valuesrepeatedl y in the range (test of the 200-300 ng/dL or less, code = may benefit fro mtestosterone 2986-8) treatment after adequate risk and benefits co unseling. For additional info rmation, please refer tohttps://educa tion.Bloxr.[employer]/faq/ TotalTestostero neLCMSMS (This link is being provided for informational/e ducational purposes only.) (Note) This test was develo ped and its analytical performancechar acteristics have been deter mined by [employer]. It h as notbeen cleared or appr pb by the FDA. This assay has been validatedpursua nt to the CLIA regulations and is used for clinical purpos es. MDFmed [id number] [address],[address] [place] [address] [phone] Dolores uKmar MD AKBAR (test FASTING:YES code = FASTING: YES AKBAR) RAC (test Performing code = Organization RAC) Information: Site ID: [id number] [facility] Address: [address] [place] [address], [address] [place] [address] Director: Jimbo Kumar MD [facility] CenterThyroid stimulating [id number] 06:48:00 Test Item Value Reference Range Interpretation Comments TSH (test See_Comment [Automated Trust Mico talya] code = The system ic h 3016-3) generated this result transmit armida reference range : 0.40 - 4.50 mIU /L. The reference r shena was not used to interpret this result as normal/abnormal . AKBAR (test FASTING:YES FASTING: code = AKBAR) YES RAC (test Performing code = RAC) Organization Information: Site ID: RGA [facility] Address: [address] [place] [phone] Director: Sunil Escalona [facility] CenterComprehensive metabolic [id number] 06:48:00 Test Item Value Reference Interpretation Comments Range Glucose (test 91 mg/dL 65-99 Fasting refer ence code = 2345-7) interval BUN (test code = 18 mg/dL 7-25 3094-0) Creatinine (test 1.10 mg/dL 0.70-1.25 For patient s >49 code = 2160-0) years of age, the reference limit for Creatinine is approximately 1 3% higher for peopleidentifie d as -Carol n. EGFR Non-Afr. 71 See_Comment [Automated me ssage] Canadian (test The system ich code = 2775) generated this result transmitted ref erence range: > OR = 6 0 mL/min/1.73m2. The reference range was not used to int erpret this result as normal/abnormal . EGFR 82 See_Comment [Automated mes talya] Canadian (test The system ich code = 2774) generated this result transmitted ref erence range: > OR = 6 0 mL/min/1.73m2. The reference range was not used to int erpret this result as normal/abnormal . BUN/creatinine NOT APPLICABLE See_Comment [Automated message] ratio (test code The system which = 3097-3) generated this result transmitted ref erence range: 6 - 22 ( calc). The reference r shena was not used to interpret this result as normal/abnor mal. Sodium (test code 138 mmol/L 135-146 = 2951-2) Potassium (test 4.3 mmol/L 3.5-5.3 code = 2823-3) Chloride (test 104 mmol/L 98-110 code = 2075-0) CO2 (test code = 26 mmol/L 20-32 2027-9) Calcium (test 9.5 mg/dL 8.6-10.3 code = 12533-9) Protein (test 7.1 g/dL 6.1-8.1 code = 2885-2) Albumin, S (test 4.9 g/dL 3.6-5.1 code = 1751-7) Globulin, total 2.2 See_Comment [Automated message] (test code = [place] [address]-2) generated this result transmitted ref erence range: 1.9 - 3. 7 g/dL (calc). The ref erence range was not u sed to interpret this result as normal/abnor mal. Albumin/globulin 2.2 See_Comment [Automated message] ratio (test code The system which = 1759-0) generated this result transmitted ref erence range: 1.0 - 2. 5 (calc). The ref erence range was not u sed to interpret this result as normal/abnor mal. Total bilirubin 0.6 mg/dL 0.2-1.2 (test code = 1974-2) Alkaline 41 U/L 35-144 phosphatase (test code = 6768-6) AST (test code = 20 U/L 10-35 1920-8) ALT (test code = 37 U/L 9-46 1742-6) AKBAR (test code = FASTING:YES AKBAR) FASTING: YES RAC (test code = Performing RAC) Organization Information: Site ID: RGA Name: I AM ATFrancis [facility]ie Lab Address: [address] [place] [address] Director: Sunil Escalona [facility] specific [id number] 06:48:00 Test Item Value Reference Range Interpretation Comments PSA (test 0.30 ng/mL See_Comment The total PSA v alue code = from this assay system 2857-1) is standardized against the WHO standar d. The test result viry l be approximately 2 0% lower when compared t o the equimolar-stand ardized total PSA (IntelliGeneScan Nicole). Roosevelt rison of serial PSA resu lts should be inter preted with this fact in mind. This test was p erformed using the Remark ns chemiluminescen t method. Values obtained from different assay methods cannot be usedinterchange ably. PSA levels, reg ardless ofvalue, should not be interpreted as absoluteevidenc e of the presence or abs ence of disease. [Autom ated message] The sy stem which generated this result transmit armida reference range : < OR = 4.00. The refer ence range was not u sed to interpret this result as normal/abnor mal. AKBAR (test FASTING:YES code = AKBAR) FASTING: YES RAC (test Performing code = RAC) Organization Information: Site ID: RGA [facility] Address: [address] [place] [phone] Director: Sunil Leonard WdiwlhjaTbipzheiggfb2837-12-84 06:48:00 Test Item Value Reference Interpretation Comments Range Testoster 265 ng/dL 250-1100 Men with clinic ally one, significant hyp ogonadal total, symptoms and te stosterone lc/ms/ms valuesrepeatedl y in the range (test of the 200-300 ng/dL or less, code = may benefit fro mtestosterone 2986-8) treatment after adequate risk and benefits co unseling. For additional info rmation, please refer tohttps://educa tion.[employer]/faq/ TotalTestostero neLCMSMS (This link is being provided for informational/e ducational purposes only.) (Note) This test was develo ped and its analytical performancechar acteristics have been deter mined by [employer]. It h as notbeen cleared or appr pb by the FDA. This assay has been validatedpursua nt to the CLIA regulations and is used for clinical purpos es. MDFmed [id number] [place] [address],[address] [place] [address] [id number] 00Jimbo Kumar MD AKBAR (test FASTING:YES code = FASTING: YES AKBAR) RAC (test Performing code = Organization RAC) Information: Site ID: [id number] [facility] Address: [address] [place] [address], [address] [place] [address] [place] [address] Director: Jimbo Kumar MD [facility] CenterThyroid stimulating [id number] 06:48:00 Test Item Value Reference Range Interpretation Comments TSH (test 3.04 See_Comment [Automated mes talya] code = The system ic h 3016-3) generated this result transmit armida reference range : 0.40 - 4.50 mIU /L. The reference r shena was not used to interpret this result as normal/abnormal . AKBAR (test FASTING:YES FASTING: code = AKBAR) YES RAC (test Performing code = RAC) Organization Information: Site ID: [id number] [facility]: [facility] Address: [address] [place] [id number] Director: Sunil Escalona [facility] with platelet and [id number] 06:48:00 Test Item Value Reference Range Interpretation Comments WBC (test code = 5.7 See_Comment [Automated 6690-2) message] The system which generated this result transmitted reference range : 3.8 - 10.8 Thousand/uL. Th e reference range was not used to interpret this result as normal/abnormal . RBC (test code = 5.17 See_Comment [Automated 789-8) message] The system which generated this result transmitted reference range : 4.20 - 5.80 Million/uL. The reference range was not used to interpret this result as normal/abnormal . HGB (test code = 14.8 g/dL 13.2-17.1 718-7) HCT (test code = 45.2 % 38.5-50.0 4544-3) MCV (test code = 87.4 fL 80.0-100.0 787-2) MCH (test code = 28.6 pg 27.0-33.0 785-6) MCHC (test code = 32.7 g/dL 32.0-36.0 786-4) RDW (test code = 13.0 % 11.0-15.0 788-0) Platelet count 227 See_Comment [Automated (test code = message] The 777-3) system which generated this result transmitted reference range : 140 - 400 Thousand/uL. Th e reference range was not used to interpret this result as normal/abnormal . MPV (test code = 9.4 fL 7.5-12.5 776-5) Neutrophils, 2793 See_Comment [Automated absolute (test message] The code = 751-8) system which generated this result transmitted reference range : 1,500 - 7,800 cells/uL. The reference range was not used to interpret this result as normal/abnormal . Lymphocytes, 2280 See_Comment [Automated absolute (test message] The code = 731-0) system which generated this result transmitted reference range : 850 - 3,900 cells/uL. The reference range was not used to interpret this result as normal/abnormal . Monocytes, 388 See_Comment [Automated absolute (test message] The code = 742-7) system which generated this result transmitted reference range : 200 - 950 cells/uL. The reference range was not used to interpret this result as normal/abnormal . Eosinophils, 188 See_Comment [Automated absolute (test message] The code = 711-2) system which generated this result transmitted reference range : 15 - 500 cells/uL. The reference range was not used to interpret this result as normal/abnormal . Basophils, 51 See_Comment [Automated absolute (test message] The code = 704-7) system which generated this result transmitted reference range : 0 - 200 cells/u L. The reference range was not used to interpr et this result as normal/abnormal . Neutrophils (test 49 % code = 770-8) Lymphocytes (test 40.0 % code = 736-9) Monocytes (test 6.8 % code = 5905-5) Eosinophils (test 3.3 % code = 713-8) Basophils + RC 0.9 % (test code = 706-2) AKBAR (test code = FASTING:YES AKBAR) FASTING: YES RAC (test code = Performing RAC) Organization Information: Site ID: [id number] [facility] Address: [address] [place] [id number] Director: Sunil Leonard [facility] 12 [id number] 15:54:22 Test Item Value Reference Range Interpretation Comments Ventricular rate (test 49 code = 253) Atrial rate (test code = 49 255) MN interval (test code = 186 266) QRSD interval (test code 106 = 260) QT interval (test code = 458 264) QTC interval (test code 413 = 265) P axis 1 (test code = 34 267) QRS axis 1 (test code = -10 268) T wave axis (test code = 7 270) EKG impression (test Sinus code = 273) bradycardia-Otherwise normal ECG-No previous ECGs available-Electronica lly Signed By Catie Kearns MD ([id number]) on 08/30/2021 10:54:19 AM [address]2022-03-28 15:54:22 Test Item Value Reference Range Interpretation Comments Ventricular rate (test code = 253) Atrial rate (test code = 255) MN interval (test code = 266) QRSD interval (test code = 260) QT interval (test code = 264) QTC interval (test code = 265) P axis 1 (test code = 267) QRS axis 1 (test code = 268) T wave axis (test code = 270) EKG impression (test Sinus code = 273) bradycardia-Otherwise normal ECG-No previous ECGs available-Electronica lly Signed By Caite Kearns MD ([id number]) on 08/30/2021 10:54:19 AM [address]2022-03-28 15:54:22 Test Item Value Reference Range Interpretation Comments Ventricular rate (test code = 253) Atrial rate (test code = 255) MN interval (test code = 266) QRSD interval (test code = 260) QT interval (test code = 264) QTC interval (test code = 265) P axis 1 (test code = 267) QRS axis 1 (test code = 268) T wave axis (test code = 270) EKG impression (test Sinus code = 273) bradycardia-Otherwise normal ECG-No previous ECGs available-Electronica lly Signed By Catie Kearns MD ([id number]) on 08/30/2021 10:54:[address]2022-03-28 15:54:22 Test Item Value Reference Range Interpretation Comments Ventricular rate (test 49 code = 253) Atrial rate (test code = 49 255) MN interval (test code = 186 266) QRSD interval (test code 106 = 260) QT interval (test code = 458 264) QTC interval (test code 413 = 265) P axis 1 (test code = 34 267) QRS axis 1 (test code = -10 268) T wave axis (test code = 7 270) EKG impression (test Sinus code = 273) bradycardia-Otherwise normal ECG-No previous ECGs available-Electronica lly Signed By Catie Kearns MD ([id number]) on 08/30/2021 10:54:19 AM [facility]
[2022-08-26 11:45] LABS: Absolute Lymphocytes (CBC) 1.6 K/uL (0.7-4.9); Hematocrit 41.4 % (39.6-49.0); Lymphocytes % 26.1 % (15.3-44.8); MCV 85.9 fL (80-100); MPV 6.8 fL (7.6-11.3); RBC Red Blood Cell Count 4.82 M/uL (4.33-5.43)
[2022-08-26 12:01] LABS: Albumin 4.2 g/dL (3.4-5.0); Bilirubin Total 0.6 mg/dL (0.2-1.0); Magnesium 2.3 mg/dL (1.6-2.4); Potassium 3.5 mEq/L (3.5-5.1); Protein, Total 6.9 g/dL (6.4-8.2); Troponin High Sensitivity 10.4 pg/mL (<58.9)
--- NOTE | 2022-08-26 12:22 | RAD REPORT ---
EXAM DESCRIPTION: RAD - Chest Single View - 08/26/2022 11:43 am CLINICAL HISTORY: near syncope Chest pain. COMPARISON: Chest Single View dated 08/19/2021; Chest Single View dated 01/28/2020; CHEST PA AND LAT 2 VIEW dated 03/11/2013 FINDINGS: Portable technique limits examination quality. The lungs are grossly clear. Calcified granulomata are present bilaterally, benign. The heart is norm al in size. No displaced fractures. IMPRESSION: No acute intrathoracic process suspected.
--- NOTE | 2022-08-26 13:12 | ER ---
Nurse's Notes [facility] Name: Mynor Jenkins Age: 62 yrs Sex: Male : 1960 Arrival Date: 08/26/2022 Time: 10:24 Bed 18 Private MD: Diagnosis: Syncope Near;Bradycardia, unspecified Presentation: 08/26 10:47 Chief complaint: Patient states: I have had back pain for the last three weeks that's kr3 starts between my shoulder blades and radiates down each side of my back, I also have had some day were I cannot put my thoughts together x 3 weeks, there has been loud ringing in my ears on and off for the last 2 days that is worse than normal, I have had g=face numbness in my left jaw and lip on and off for the last 6 months, my doctor did an MRI about 4 months ago, also nausea for the last 3 weeks on and off. Coronavirus screen: Vaccine status: Patient reports receiving the 2nd dose of the covid vaccine. Ebola Screen: Patient denies travel to an Ebola-affected area in the 21 days before illness onset. Initial Sepsis Screen: Does the patient meet any 2 criteria? No. Patient's initial sepsis screen is negative. Does the patient have a suspected source of infection? No. Patient's initial sepsis screen is negative. Risk Assessment: Do you want to hurt yourself or someone else? Patient reports no desire to harm self or others. Onset of symptoms was August 07, 2022. 10:47 Method Of Arrival: Ambulatory kr3 10:47 Acuity: JAYJAY 3 kr3 Triage Assessment: 10:53 General: Appears in no apparent distress. comfortable, Behavior is calm, cooperative, kr3 appropriate for age. Pain: Complains of pain in thoracic area, left low back, left mid back, right mid back and right low back. EENT: No deficits noted. Neuro: Level of Consciousness is awake, Oriented to person, place, time, situation. Cardiovascular: Patient's skin is warm and dry. Respiratory: Airway is patent Respiratory effort is even, unlabored, Respiratory pattern is regular, symmetrical. GI: No deficits noted. : No deficits noted. Derm: No signs and/or symptoms reported regarding the dermatologic system. Musculoskeletal: Circulation, motion, and sensation intact. Historical: - Allergies: 10:53 Hydrocodone-Acetaminophen; kr3 - PMHx: 10:53 Emphysema; High Cholesterol; Hypertension; kr3 - PSHx: 10:53 hernia repair; Tonsillectomy; kr3 - Immunization history:: Adult Immunizations up to date. - Social history:: Smoking status: Patient/guardian denies using tobacco, the patient reports quitting approximately 22 years ago. - Family history:: not pertinent. Screenin:[facility] ED Fall Risk Assessment (Adult) History of falling in the last 3 months, kr3 including since admission No falls in past 3 months (0 pts) Confusion or Disorientation No (0 pts) Intoxicated or Sedated No (0 pts) Impaired Gait No (0 pts) Mobility Assist Device Used No (0 pt) Altered Elimination No (0 pt) Score/Fall Risk Level 0 - 2 = Low Risk Oriented to surroundings, Maintained a safe environment, Educated pt \T\ family on fall prevention, incl call for assistance when getting out of bed, Assessed \T\ reinforced patient's understanding of fall precautions, Hourly rounding (assess needs \T\ fall precautionary measures) done. Abuse screen: Denies threats or abuse. Nutritional screening: No deficits noted. Tuberculosis screening: No symptoms or risk factors identified. Assessment: 12:08 Reassessment: Patient appears in no apparent distress at this time. Patient and/or kr3 family updated on plan of care and expected duration. Pain level reassessed. Patient is alert, oriented x 3, equal unlabored respirations, skin warm/dry/pink. 13:06 Reassessment: patient able to ambulate around pod 2 and fast track with out dizziness kr3 upon standing or walking. 13:27 Reassessment: Patient appears in no apparent distress at this time. Patient and/or kr3 family updated on plan of care and expected duration. Pain level reassessed. Patient is alert, oriented x 3, equal unlabored respirations, skin warm/dry/pink. Neuro: Level of Consciousness is awake, alert, obeys commands, Oriented to person, place, time, situation. Vital Signs: 10:47 BP 128 / 77; Pulse 49; Resp 19; Temp 97.7(O); Pulse Ox 100% on R/A; Weight 92.08 kg; kr3 Height 5 ft. 10 in. ; 12:08 BP 117 / 76; Pulse 44; Resp 17; Pulse Ox 98% on R/A; kr3 13:28 BP 141 / 80; Pulse 48; Resp 18; Pulse Ox 97% on R/A; kr3 10:47 Body Mass Index 29.13 (92.08 kg, 177.8 cm) kr3 ED Course: 10:24 Patient arrived in ED. rg4 10:41 Arm band placed on Patient placed in an exam room, on a stretcher. ll1 10:47 Jena Thayer RN is Primary Nurse. kr3 10:53 Triage completed. kr3 10:57 Ernie Perry MD is Attending Physician. rt 11:45 Chest Single View XRAY In Process Unspecified. EDMS 11:47 Patient has correct armband on for positive identification. Placed in gown. Bed in low mm9 position. Call light in reach. Side rails up X 1. Adult w/ patient. Warm blanket given. campus monitor on. Pulse ox on. NIBP on. 13:29 No provider procedures requiring assistance completed. IV discontinued, intact, kr3 bleeding controlled, No redness/swelling at site. Pressure dressing applied. Administered Medications: No medications were administered Medication: 13:30 VIS not applicable for this client. kr3 Outcome: 13:12 Discharge ordered by . rt 13:29 Discharged to home ambulatory. kr3 13:29 Condition: stable 13:29 Discharge instructions given to patient, Instructed on discharge instructions, follow up and referral plans. Demonstrated understanding of instructions, follow-up care. 13:30 Patient left the ED. kr3 Signatures: Dispatcher [employer] Danika Corbett 4 Kitty Johnson RN RN [facility] Jena Thayer RN RN kr3 [facility] mm9 Ernie Perry MD MD rt
--- NOTE | 2022-08-26 13:12 | EDPHYS ---
Physician Documentation [facility] Name: Mynor Jenkins Age: 62 yrs Sex: Male : 1960 Arrival Date: 08/26/2022 Time: 10:24 Bed 18 Private MD: ED Physician Ernie Perry HPI: 08/26 12:59 This 62 yrs old Male presents to ER via Ambulatory with complaints of Numbness Of Face, rt Back Pain, Low Heart Rate/BP. 12:59 Patient presents to the ED with near syncope, tinnitus. He had other complaints at rt triage that also be chronic, the no acute issue today is the near syncope. Patient states that his heart rate is going slow. Of note, he does take atenolol and did take a dose this morning. He denies any chest pain, shortness of breath, other acute complaints, symptoms are moderate in severity, no other aggravating or alleviating factors.. Historical: - Allergies: 10:53 Hydrocodone-Acetaminophen; kr3 - PMHx: 10:53 Emphysema; High Cholesterol; Hypertension; kr3 - PSHx: 10:53 hernia repair; Tonsillectomy; kr3 - Immunization history:: Adult Immunizations up to date. - Social history:: Smoking status: Patient/guardian denies using tobacco, the patient reports quitting approximately 22 years ago. - Family history:: not pertinent. ROS: 12:59 Constitutional: Negative for fever, chills, and weight loss, Cardiovascular: Negative rt for chest pain, palpitations, and edema, Respiratory: Negative for shortness of breath, cough, wheezing, and pleuritic chest pain, MS/Extremity: Negative for injury and deformity, Skin: Negative for injury, rash, and discoloration, Neuro: Negative for headache, weakness, numbness, tingling, and seizure, Psych: Negative for depression, anxiety, suicide ideation, homicidal ideation, and hallucinations. 12:59 Neuro: Positive for near syncope. Exam: 12:59 CT study not indicated or reported. Reason for not performing CT: Not indicated rt 12:59 Constitutional: This is a well developed, well nourished patient who is awake, alert, and in no acute distress. Head/Face: Normocephalic, atraumatic. Chest/axilla: Normal chest wall appearance and motion. Nontender with no deformity. No lesions are appreciated. Cardiovascular: Regular rate and rhythm with a normal S1 and S2. No gallops, murmurs, or rubs. Normal PMI, no JVD. No pulse deficits. Respiratory: Lungs have equal breath sounds bilaterally, clear to auscultation and percussion. No rales, rhonchi or wheezes noted. No increased work of breathing, no retractions or nasal flaring. Abdomen/GI: Soft, non-tender, with normal bowel sounds. No distension or tympany. No guarding or rebound. No evidence of tenderness throughout. Skin: Warm, dry with normal turgor. Normal color with no rashes, no lesions, and no evidence of cellulitis. MS/ Extremity: Pulses equal, no cyanosis. Neurovascular intact. Full, normal range of motion. Neuro: Awake and alert, GCS 15, oriented to person, place, time, and situation. Cranial nerves II-XII grossly intact. Motor strength 5/5 in all extremities. Sensory grossly intact. Cerebellar exam normal. Normal gait. Psych: Awake, alert, with orientation to person, place and time. Behavior, mood, and affect are within normal limits. 12:59 ECG was reviewed by the Attending Physician. Vital Signs: 10:47 BP 128 / 77; Pulse 49; Resp 19; Temp 97.7(O); Pulse Ox 100% on R/A; Weight 92.08 kg; kr3 Height 5 ft. 10 in. ; 12:08 BP 117 / 76; Pulse 44; Resp 17; Pulse Ox 98% on R/A; kr3 13:28 BP 141 / 80; Pulse 48; Resp 18; Pulse Ox 97% on R/A; kr3 10:47 Body Mass Index 29.13 (92.08 kg, 177.8 cm) kr3 MDM: 10:59 Patient medically screened. rt 14:44 Differential diagnosis: Symptomatic bradycardia, medication effect, electrolyte rt disturbance. Data reviewed: vital signs, nurses notes, lab test result(s), EKG, radiologic studies. Consideration of Admission/Observation Escalation of care including admission/observation considered. Patient is noted to be bradycardic, suspect this is due to atenolol, labs, EKG are benign save for a sinus bradycardia. Patient had resolution of symptoms in the ED despite remaining bradycardic. He is able ambulate without any dizziness. Will recommend him hold his atenolol, may increase amlodipine if necessary for blood pressure control. Patient is comfortable with discharge at this time. 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 Care significantly affected by the following chronic conditions: Hypertension. Counseling: I had a detailed discussion with the patient and/or guardian regarding: the historical points, exam findings, and any diagnostic results supporting the discharge/admit diagnosis, lab results, radiology results, the need for outpatient follow up. 08/26 11:19 Order name: CBC with Diff; Complete Time: 12:04 rt 08/26 11:19 Order name: CMP; Complete Time: 12:04 rt 08/26 11:19 Order name: Troponin High Sensitivity; Complete Time: 12:04 rt 08/26 11:19 Order name: Magnesium; Complete Time: 12:04 rt 08/26 11:19 Order name: Chest Single View XRAY; Complete Time: 12:41 rt 08/26 11:19 Order name: EKG; Complete Time: 11:20 rt 08/26 11:19 Order name: EKG - Nurse/Tech; Complete Time: 11:48 rt EC:59 Rate is 41 beats/min. Rhythm is regular, Sinus bradycardia with No ectopy. QRS [place] is rt Normal. GA interval is normal. QRS interval is normal. QT interval is normal. No Q waves. T waves are Normal. No ST changes noted. Administered Medications: No medications were administered Disposition Summary: 08/26/22 13:12 Discharge Ordered Location: Home rt Problem: new rt Symptoms: are resolved rt Condition: Stable rt Diagnosis - Syncope Near rt - Bradycardia, unspecified rt Followup: rt - With: Private Physician - When: 2 - 3 days - Reason: Discharge Instructions: - Discharge Summary Sheet rt - Bradycardia, Adult rt - Near-Syncope rt Forms: - Medication Reconciliation Form rt - Thank You Letter rt - Antibiotic Education rt - Prescription Opioid Use rt Signatures: Dispatcher [employer] EDJena Baptiste RN RN kr3 Ernie Perry MD MD rt
[2022-08-26 13:43] VITALS: TEMP 97.7
[2022-08-26 13:46] VITALS: BP 141/80; O2SAT 97
--- NOTE | 2022-08-29 12:35 | EKG ---
Test Date: 2022-08-26 Test Time: 11:44:28 Coat Ironer Hand: ALEXANDREA MEASUREMENT RESULTS: Intervals: Rate: 41 ID: [id number] QRSD: 106 QT: 472 QTc: 389 [place]: P: 18 ID: [id number] QRS: -17 T: 40 INTERPRETIVE STATEMENTS: Marked sinus bradycardia Compared to ECG 08/19/2021 08:45:17 Sinus rhythm no longer present Electronically Signed On 08-29-22 12:28:19 CDT by Ivan Louise
== END 2022-08-26 13:30 | disposition home or self-care (01) ==
LOC: ER 10:20
DX: R55 Syncope and collapse (principal); R00.1 Bradycardia, unspecified; I10 Essential (primary) hypertension; Z88.5 Allergy status to narcotic agent
CPT/HCPCS: 36415; 71045; 80053; 83735; 84484; 85025; 93005; 99284